=== PATIENT | female | born 1965 | race Caucasian/White ===

== ENCOUNTER 2019-03-03 20:08 | Inpatient (IN) | payer MEDICARE ==
[~2019-03-03] VITALS: Ht 165.1 cm; Wt 95.3 kg
[2019-03-03 23:47] LABS: HEMATOCRIT 20.8 % (36.0-48.0); LYMPHOCYTES 15.1 % (15-50); MCH 29.8 pg (26.0-34.0); MCHC 33.7 g/dL (31.0-37.0); MCV 88.5 fL (80.0-100.0); MEAN PLATELET VOLUME 10.6 fL (7.4-10.4); NEUTROPHILS 74.6 % (40-80); PLATELET COUNT 63 10x3/uL (130-400); RBC 2.35 10x6/uL (4.00-5.40); RDW 15.1 % (11.5-14.5); WBC 7.2 10x3/uL (4.8-10.8)
[2019-03-04] VITALS (18 sets, daily range): BP systolic 85–121; BP diastolic 47–81; Ht 165.1 cm; Wt 95.3 kg
[2019-03-04 00:03] LABS: ALBUMIN 2.8 g/dL (3.4-5.0); ANION GAP 11.8 mmol/L (8-16); BILIRUBIN - TOTAL 0.7 mg/dL (0.2-1.3); CARBON DIOXIDE 32.1 mmol/L (21.0-32.0); CREATININE - SERUM 1.9 mg/dL (0.6-1.3); POTASSIUM - SERUM 3.9 mmol/L (3.5-5.1); PROTEIN - SERUM 6.7 g/dL (6.4-8.2)
[2019-03-04 00:18] LABS: CALCIUM 12.6 mg/dL (8.5-10.1)
[2019-03-04] MEDS ORDERED: BUPROPION XL300 MG PO (00:55)
[2019-03-04] MEDS ORDERED: ACETAMINOPHEN500 M1 PO (00:59)
--- NOTE | 2019-03-04 06:42 | NUR ---
ALERT AND ORENTED ABLE TO VOICE NEEDS AND WANTS TO STAFF. IV TO RIGHT HAND WITH NS AT 75 UNTILL PRBC UNIT #1 OF 2 STARTED AT 0359. TOLARATING WELL. LEFT ARM RESERVE. SCD'S IN PLACE. CALL LIGHT AND WATER IN REACH.
--- NOTE | 2019-03-04 07:05 | NUR ---
PT RESTING IN BED WITH EYES CLOSED. RESP EVEN AND UNLABORED. REPORTS PAIN 4/10 AT THIS TIME. IV TO RIGHT HAND WITH NS @ 75 ML/HR INFUSING VIA PUMP. SITE WITHOUT REDNESS OR EDEMA. DENIES FURTHER NEEDS AT THIS TIME. CL WITHIN REACH. ENCOURAGED TO CALL WITH NEEDS. CONTINUE POC
[2019-03-04 09:13] LABS: % SATURATION 10 % (15-55); IRON 28 ug/dl (35-150); TOTAL IRON BIND CAPACITY 258 ug/dl (260-445); UNSAT IRON BIND CAPACITY 230 ug/dl (150-375)
[2019-03-04 16:37] LABS: BASOPHILS 0.1 % (0-2); EOSINOPHILS 1.2 % (0-7); HEMOGLOBIN 8.3 g/dL (12-16); IMMATURE GRANULOCYTES 1.9 % (0-5); LYMPHOCYTES 18.7 % (15-50); MCH 28.6 pg (26.0-34.0); MCHC 33.2 g/dL (31.0-37.0); MEAN PLATELET VOLUME 10.2 fL (7.4-10.4); NEUTROPHILS 68.1 % (40-80); PLATELET COUNT 52 10x3/uL (130-400); RDW 15.8 % (11.5-14.5); WBC 6.9 10x3/uL (4.8-10.8)
[2019-03-04 16:52] LABS: MCV 86.2 fL (80.0-100.0)
[2019-03-04 16:53] LABS: INR 1.15 (0.85-1.17); PROTIME 14.2 SECONDS (11.6-15.0)
[2019-03-04 17:01] LABS: D-DIMER-QUANTITATIVE 3.53 ug/mLFEU (0.20-0.54)
[2019-03-04 17:06] LABS: ANION GAP 12.1 mmol/L (8-16); CALCIUM 11.2 mg/dL (8.5-10.1); CARBON DIOXIDE 30.5 mmol/L (21.0-32.0); CREATININE - SERUM 1.8 mg/dL (0.6-1.3); MAGNESIUM - SERUM 1.5 mg/dL (1.8-2.4); PHOSPHOROUS 4.2 mg/dL (2.5-4.9); POTASSIUM - SERUM 3.6 mmol/L (3.5-5.1)
[2019-03-04 17:11] LABS: PLATELET ESTIMATE DECREASED
[2019-03-04 22:44] LABS: HEMATOCRIT 25.9 % (36.0-48.0); HEMOGLOBIN 8.7 g/dL (12-16)
[2019-03-04 23:14] LABS: APPEARANCE CLEAR (CLEAR); BILIRUBIN NEGATIVE (NEGATIVE); COLOR YELLOW (YELLOW); GLUCOSE NEGATIVE (NEGATIVE); KETONE NEGATIVE (NEGATIVE); NITRITE NEGATIVE (NEGATIVE); PROTEIN NEGATIVE (NEGATIVE); UROBILINOGEN NORMAL (NORMAL)
[2019-03-05] VITALS: BP 106/60
[2019-03-05 06:23] LABS: BASOPHILS 0.1 % (0-2); EOSINOPHILS 1.6 % (0-7); HEMOGLOBIN 8.5 g/dL (12-16); LYMPHOCYTES 19.5 % (15-50); MCHC 32.7 g/dL (31.0-37.0); MCV 85.5 fL (80.0-100.0); MEAN PLATELET VOLUME 11.4 fL (7.4-10.4); MONOCYTES 7.3 % (2-11); NEUTROPHILS 69.5 % (40-80); PLATELET COUNT 60 10x3/uL (130-400); RBC 3.04 10x6/uL (4.00-5.40); WBC 7.1 10x3/uL (4.8-10.8)
[2019-03-05 06:42] LABS: ANION GAP 16.4 mmol/L (8-16); CALCIUM 11.5 mg/dL (8.5-10.1); CARBON DIOXIDE 24.3 mmol/L (21.0-32.0); CREATININE - SERUM 1.6 mg/dL (0.6-1.3); MAGNESIUM - SERUM 1.5 mg/dL (1.8-2.4); PHOSPHOROUS 4.2 mg/dL (2.5-4.9); POTASSIUM - SERUM 3.7 mmol/L (3.5-5.1)
[2019-03-05 07:12] LABS: UDS - AMPHET POSITIVE QUAL (NEGATIVE); UDS - BARB NEGATIVE QUAL (NEGATIVE); UDS - BENZO NEGATIVE QUAL (NEGATIVE); UDS - COCAINE NEGATIVE QUAL (NEGATIVE); UDS - OPIATE POSITIVE QUAL (NEGATIVE); UDS - PCP NEGATIVE QUAL (NEGATIVE); UDS - THC NEGATIVE QUAL (NEGATIVE)
--- NOTE | 2019-03-05 07:41 | NUR ---
PT IS RESTING IN BED WITH EYES CLOSED. RESPIRATIONS ARE EVEN AND UNLABORED. PT IS EASILY AROUSED WITH VERBAL STIMULATION. PT REPORTS PAIN WITH MOVEMENT TO BACK AREA. PT DENIES PRESENCE OF N/V. SCDS ARE ON BILATERAL LOWER EXTREMITIES. PUREWICK IN PLACE AND HOOKED TO SUCTION. PURE WICK CHANGED PER PROTOCOL. CLEAR DARK YELLOW URINE NOTED TO COLLECTION CHAMBER. PT DENIES PRESENCE OF BURNING WITH URINATION BUT REPORTS THAT SHE IS UNABLE TO CONTROL BLADDER ESPECIALLY WITH MOVEMENT. PT REPORTS LAST BM WAS 9 DAYS AGO AND REPORTS THAT HER NORMAL BOWEL PATTERN IS EVERY OTHER DAY. WILL ADDRESS. SEE EMAR. PT DENIES FURTHER NEEDS. BED IS IN THE LOWEST POSITION. CALL LIGHT AND BEDSIDE TABLE ARE WITHIN REACH. SIDE RAILS X 2. WILL CONT TO MONITOR.
[2019-03-05 08:30] VITALS: BP 117/66
[2019-03-05 09:47] LABS: PLATELET ESTIMATE DECREASED
[2019-03-05 09:54] LABS: ANISOCYTOSIS OCC; PLATELET MORPHOLOGY PLT CLUMPS PRESENT
[2019-03-05 09:55] LABS: CRENATED CELLS OCC; SCHISTOCYTES OCC; TEAR DROP CELLS OCC
--- NOTE | 2019-03-05 15:14 | MORECARE ---
CASE MANAGEMENT DISCHARGE SUMMARY PATIENT: DOMINGA GARCIA UNIT: [id number] ADM DATE: 03/03/19 AGE: 53 : 61 SEX: F ROOM/BED: D.2206 AUTHOR: KALINA PEOPLES PHYSICIAN: REFERRING PHYSICIAN: SPOHY TEJEDA DO DATE OF SERVICE: 03/05/19 Discharge Plan Patient Name: DOMINGA GARCIA [facility] [facility] 1965 Planned Disposition: Home Anticipated Discharge Date: Discharge Date: Expected LOS: Initial Reviewer: [email or web address] Initial Review Date: 03/04/2019 Generated: 03/05/19 4:13 pm DCPIA - Discharge Planning Initial Assessment Updated by [email or web address]: Dianne Stewart on 03/05/19 3:05 pm * Is the patient Alert and Oriented? Yes * PCP [facility] * Pharmacy [facility]? * Preadmission Environment Home with Family * ADLs Independent * Equipment None * List name and contact numbers for known caregivers / representatives who currently or will assist patient after discharge: HALI GARCIA [phone] * Verbal permission to speak to the caregivers and representatives has been obtained from the patient. N/A * Community resources currently utilized None * Additional services required to return to the preadmission environment? Yes * Has this patient been hospitalized within the prior 30 days at any hospital? No Patient Name: DOMINGA GARCIA Page [id number] at 1514 All edits/amendments must be made on the electronic document DICTATION DATE: 03/05/191512 MARKETING OPERATIONS MANAGER: JOSE 03/05/191512 RPT#: [id number] DC DATE: STATUS: ADM IN [facility] [address] [place] [address] END OF REPORT
--- NOTE | 2019-03-05 15:23 | MORECARE ---
CASE MANAGEMENT DISCHARGE SUMMARY PATIENT: DOMINGA GARCIA UNIT: [id number] ADM DATE: 03/03/19 AGE: 53 : 61 SEX: F ROOM/BED: D.2206 AUTHOR: KALINA PEOPLES PHYSICIAN: REFERRING PHYSICIAN: SOPHY TEJEDA DO DATE OF SERVICE: 03/05/19 Discharge Plan Patient Name: DOMINGA GARCIA Facility: [facility]:[place] : 1965 Planned Disposition: Home Anticipated Discharge Date: Discharge Date: Expected LOS: Initial Reviewer: [email or web address] Initial Review Date: 03/04/2019 Generated: 03/05/19 4:22 pm Comments DCP- Discharge Planning Updated by [id number]: Dianne Stewart on 03/05/19 2:[address] Patient Name: DOMINGA GARCIA Admission Status: ER Accout number: [id number] Admission Date: 03-03-2019 : 1965 Admission Diagnosis: Attending: SOPHY TEJEDA Current LOS: 2 Anticipated DC Date: Planned Disposition: Home Primary Insurance: MEDICARE A & B Discharge Planning Comments: CM met with patient to complete initial dc planning assessment. CM educated patient on the CM role and verbal consent given by patient to complete assessment. Patient is living with her friend Lynnette with her and her 13 year old Autistic son Yohan. She stated that Lynnette has 9 other people who are living there. She stated that they are homeless. At discharge she is unsure where she is going to go. She could not tell me what school her son went to, then she said she thought [employer]. She was on the phone with her when I entered her room and he was getting pulled over, she stated that he has active warrants out for him and her son was in the car. Her son did not go to school today. CM discussed availability of home health, rehab services, and medical equipment. CM will continue to follow and will assist as needed with dc plans/needs. Java Oracle Developer: Dianne Stewart DCPIA - Discharge Planning Initial Assessment Updated by [email or web address]: Dianne Stewart on 03/05/19 3:05 pm * Is the patient Alert and Oriented? Yes * PCP [facility] * Pharmacy [facility]? * Preadmission Environment Home with Family * ADLs Independent * Equipment None * List name and contact numbers for known caregivers / representatives who currently or will assist patient after discharge: HALI GARCIA [phone] * Verbal permission to speak to the caregivers and representatives has been obtained from the patient. N/A * Community resources currently utilized None * Additional services required to return to the preadmission environment? Yes * Has this patient been hospitalized within the prior 30 days at any hospital? No Last DP export: 03/05/19 2:14 p Patient Name: DOMINGA GARCIA Page 32600 at 1523 All edits/amendments must be made on the electronic document DICTATION DATE: 03/05/191521 SOCIOLOGY PROFESSOR: JOSE 03/05/191521 RPT#: [id number] DC DATE: STATUS: ADM IN [facility] [address] [place] [address] END OF REPORT
[2019-03-05 16:00] VITALS: BP 94/54
--- NOTE | 2019-03-05 19:30 | NUR ---
PT LYING IN BED RESTING, ALERT AND ORIENTED. FAMILY AT BEDSIDE. IV RIGHT WRIST INFUSING NS @ 75, NO REDNESS OR SWELLING AT INSERTION SITE. SCDS ON BILAT. RESERVE LEFT ARM. REQUESTED AND GIVEN ICE CHIPS. DENIES OTHER NEEDS AT THIS TIME. CL IN REACH, WILL CTM
[2019-03-05 20:00] VITALS: BP 108/66
[2019-03-06 04:00] VITALS: BP 159/69
--- NOTE | 2019-03-06 07:19 | NUR ---
PT IS RESTING IN BED WITH EYES CLOSED. RESPIRATIONS ARE EVEN AND UNLABORE. PT IS EASILY AROUSED WITH VERBAL STIMULATION. PT REPORTS PRESENCE OF PAIN. DENIES NEEDS AT THIS TIME. PUREWICK CHANGED. PUREWICK SET TO SUCTION. DARK YELLOW URINE NOTED TO COLLECTION CANNISTER. SCDS ARE ON. PT DENIES PRESENCE OF N/V. BED IS IN THE LOWEST POSITION. CALL LIGHT AND BEDSIDE TABLE ARE WITHIN REACH. SIDE RAILS X 2. PT DENIES FURTHER NEEDS. WILL CONT TO MONITOR.
[2019-03-06 07:31] LABS: BASOPHILS 0.4 % (0-2); EOSINOPHILS 3.1 % (0-7); HEMATOCRIT 25.8 % (36.0-48.0); HEMOGLOBIN 8.4 g/dL (12-16); IMMATURE GRANULOCYTES 3.1 % (0-5); LYMPHOCYTES 11.8 % (15-50); MCH 28.2 pg (26.0-34.0); MCHC 32.6 g/dL (31.0-37.0); MCV 86.6 fL (80.0-100.0); MONOCYTES 5.7 % (2-11); NEUTROPHILS 75.9 % (40-80); PLATELET COUNT 52 10x3/uL (130-400); RBC 2.98 10x6/uL (4.00-5.40)
[2019-03-06 07:47] LABS: WBC 5.1 10x3/uL (4.8-10.8)
[2019-03-06 07:56] LABS: CALCIUM 11.3 mg/dL (8.5-10.1); CARBON DIOXIDE 25.2 mmol/L (21.0-32.0); CREATININE - SERUM 1.3 mg/dL (0.6-1.3); MAGNESIUM - SERUM 1.6 mg/dL (1.8-2.4); PHOSPHOROUS 3.4 mg/dL (2.5-4.9); POTASSIUM - SERUM 3.2 mmol/L (3.5-5.1)
[2019-03-06 08:25] LABS: PLATELET ESTIMATE DECREASED
[2019-03-06 08:38] VITALS: BP 144/63
[2019-03-06 11:58] VITALS: BP 116/63
--- NOTE | 2019-03-06 12:20 | MORECARE ---
CASE MANAGEMENT DISCHARGE SUMMARY PATIENT: DOMINGA GARCIA UNIT: [id number] ADM DATE: 03/03/19 AGE: 53 : 61 SEX: F ROOM/BED: D.2206 AUTHOR: RICHELLE,DOC PHYSICIAN: REFERRING PHYSICIAN: SOPHY TEJEDA DO DATE OF SERVICE: 03/06/19 Discharge Plan Patient Name: DOMINGA GARCIA Facility: [facility]:[place] : 1965 Planned Disposition: Home Anticipated Discharge Date: Discharge Date: Expected LOS: Initial Reviewer: [email or web address] Initial Review Date: 03/04/2019 Generated: 03/06/19 1:19 pm Comments DCP- Discharge Planning Updated by [email or web address]: Dianne Stewart on 03/06/19 11:[address] SPOKE WITH PATIENT ABOUT DC PLAN, SHE IS ABLE TO DC TO LYNNETTE'S HOUSE. HER DID NOT GET ARRESTED AND WILL BE ABLE TO HELP HER. SHE IS IN ALOT OF PAIN, BUT KNOWS THAT DR IBANEZ WILL DO THE PROCEDURE NEXT WEEK. IMM SERVED AND EXPLAINED DCP- Discharge Planning Updated by [id number]: Dianne Stewart on 03/05/19 2:[address] Patient Name: DOMINGA GARCIA Admission Status: ER Accout number: [id number] Admission Date: 03-03-2019 : 1965 Admission Diagnosis: Attending: SOPHY TEJEDA Current LOS: 2 Anticipated DC Date: Planned Disposition: Home Primary Insurance: MEDICARE A & B Discharge Planning Comments: CM met with patient to complete initial dc planning assessment. CM educated patient on the CM role and verbal consent given by patient to complete assessment. Patient is living with her friend Lynnette with her and her 13 year old Autistic son Yohan. She stated that Lynnette has 9 other people who are living there. She stated that they are homeless. At discharge she is unsure where she is going to go. She could not tell me what school her son went to, then she said she thought [employer]. She was on the phone with her when I entered her room and he was getting pulled over, she stated that he has active warrants out for him and her son was in the car. Her son did not go to school today. CM discussed availability of home health, rehab services, and medical equipment. CM will continue to follow and will assist as needed with dc plans/needs. Barrel Planer: Dianne Stewart DCPIA - Discharge Planning Initial Assessment Updated by [id number]: Dianne Stewart on 03/05/19 3:05 pm * Is the patient Alert and Oriented? Yes * PCP [facility] * Pharmacy [facility]? * Preadmission Environment Home with Family * ADLs Independent * Equipment None * List name and contact numbers for known caregivers / representatives who currently or will assist patient after discharge: HALI GARCIA [phone] * Verbal permission to speak to the caregivers and representatives has been obtained from the patient. N/A * Community resources currently utilized None * Additional services required to return to the preadmission environment? Yes * Has this patient been hospitalized within the prior 30 days at any hospital? No Coverage Notice Reviewer: [id number] - Dianne Stewart Notice Issued Date-Time: 03/06/2019 12:10 Notice Type: IM Discharge Notice Notice Delivered To: Patient Relationship to Patient: Seeing Eye Dog Teacher Name: Delivery Method: HAND - Hand Delivered Eduarda Days: Prior Verbal Notification: Recipient Understood Notice: Yes Recipient Signature: Yes Med Rec Note Co-signed by Attending: Coverage Notice Comment: Last DP export: 03/05/19 2:23 p Patient Name: DOMINGA GARCIA Page 76207 at 1220 All edits/amendments must be made on the electronic document DICTATION DATE: 03/06/19 121 SAP CONSULTANT: JOSE 03/06/19 1219 RPT#: [id number] DC DATE: STATUS: ADM IN [facility] [address] [place] [address] END OF REPORT
--- NOTE | 2019-03-06 12:24 | NUR ---
NUTRITION F/U PT CURRENTLY SLEEPING, NO INTAKE BREAKFAST THIS AM. WILL ADD ENSURE TO MEALS. RD FOLLOWING
[2019-03-06 16:34] VITALS: BP 131/59
--- NOTE | 2019-03-06 19:15 | NUR ---
A/O X4 WITH NO SIGNS OF ACUTE DISTRESS NOTED. PT DENIES PAIN OR OTHER NEEDS AT THIS TIME. CONTIUE WITH PLAN OF CARE.
[2019-03-06 20:00] VITALS: BP 127/63
[2019-03-07] VITALS: BP 119/62
[2019-03-07 04:00] VITALS: BP 134/69
[2019-03-07 06:37] LABS: BASOPHILS 0.2 % (0-2); EOSINOPHILS 0.7 % (0-7); HEMATOCRIT 25.5 % (36.0-48.0); HEMOGLOBIN 8.3 g/dL (12-16); IMMATURE GRANULOCYTES 2.7 % (0-5); LYMPHOCYTES 17.2 % (15-50); MCH 27.9 pg (26.0-34.0); MCHC 32.5 g/dL (31.0-37.0); MCV 85.9 fL (80.0-100.0); MEAN PLATELET VOLUME 11.1 fL (7.4-10.4); MONOCYTES 8.9 % (2-11); NEUTROPHILS 70.3 % (40-80); PLATELET COUNT 56 10x3/uL (130-400); RBC 2.97 10x6/uL (4.00-5.40); RDW 15.6 % (11.5-14.5); WBC 5.5 10x3/uL (4.8-10.8)
[2019-03-07 06:48] LABS: ANION GAP 11.7 mmol/L (8-16); CALCIUM 9.8 mg/dL (8.5-10.1); CARBON DIOXIDE 27.5 mmol/L (21.0-32.0); CREATININE - SERUM 1.2 mg/dL (0.6-1.3); MAGNESIUM - SERUM 1.7 mg/dL (1.8-2.4); POTASSIUM - SERUM 3.2 mmol/L (3.5-5.1)
[2019-03-07 06:49] LABS: PHOSPHOROUS 2.5 mg/dL (2.5-4.9)
[2019-03-07 08:44] VITALS: BP 95/55
--- NOTE | 2019-03-07 09:01 | NUR ---
MEDICATED NORCO FOR C/O BACK PAIN RATING 5/10 ON PAIN SCALE. C/L IN REACH AT BEDSIDE.
[2019-03-07 09:53] LABS: PLATELET ESTIMATE DECREASED
[2019-03-07 13:32] VITALS: BP 90/52
--- NOTE | 2019-03-07 14:07 | NUR ---
MEDICATED WITH NORCO FOR C/O BACK PAIN AT THIS TIME. C/L IN REACH AT BEDSIDE.
[2019-03-07 17:25] VITALS: BP 90/50
[2019-03-07 20:00] VITALS: BP 127/55
--- NOTE | 2019-03-07 22:00 | NUR ---
REPORTS DIFICULTY BREATHING. SPO2 97% ON ROOM AIR. SAT BED UP SLIGHTLY AND INFORMED TO TAKE SLOW DEEP BREATHS THE BEST SHE CAN. PT REPORTS OCCASIONAL PANIC ATTACKS, BUT STATES ANXIETY MEDICATION MAKE HER LOSE TIME AND/OR MAKES HER ANGRY. PT IS UPSET ABOUT AUTISTIC CHILD AND AT HOME. PT IS AFRAID TO AND THEM HAVE TO TAKE CARE OF THEMSELVES. BREATHING HAS CALMED DOWN. DENIES FURTHER NEEDS AT THIS TIME. WILL CONTINUE TO MONITOR.
[2019-03-08] VITALS: BP 141/75
[2019-03-08 04:50] VITALS: BP 134/68
[2019-03-08 05:17] LABS: BASOPHILS 0.2 % (0-2); EOSINOPHILS 1.1 % (0-7); HEMATOCRIT 25.4 % (36.0-48.0); HEMOGLOBIN 8.3 g/dL (12-16); IMMATURE GRANULOCYTES 4.5 % (0-5); LYMPHOCYTES 18.2 % (15-50); MCH 28.3 pg (26.0-34.0); MCHC 32.7 g/dL (31.0-37.0); MCV 86.7 fL (80.0-100.0); MEAN PLATELET VOLUME 11.6 fL (7.4-10.4); MONOCYTES 5.3 % (2-11); NEUTROPHILS 70.7 % (40-80); PLATELET COUNT 52 10x3/uL (130-400); RBC 2.93 10x6/uL (4.00-5.40); RDW 15.5 % (11.5-14.5); WBC 6.4 10x3/uL (4.8-10.8)
[2019-03-08 05:52] LABS: ANION GAP 16.3 mmol/L (8-16); CALCIUM 8.4 mg/dL (8.5-10.1); CARBON DIOXIDE 22.6 mmol/L (21.0-32.0); CREATININE - SERUM 1.3 mg/dL (0.6-1.3); MAGNESIUM - SERUM 1.7 mg/dL (1.8-2.4); PHOSPHOROUS 2.5 mg/dL (2.5-4.9); POTASSIUM - SERUM 3.9 mmol/L (3.5-5.1)
--- NOTE | 2019-03-08 08:00 | NUR ---
ASSESSMENT PER FLOW SHEET. PT IS WITHOUT DISTRESS. SHE DOES COMPLAIN OF CONSTIPATION AND ABDOMINAL PAIN ON LEFT SIDE. SHE ALSO COMPLAINS OF BACK PAIN. SHE REFUSES TO TURN BECAUSE SHE SAYS IT HURTS WHEN SHE MOVES. UNABLE TO SEE SKIN CONDITION ON BACK AND BUTTOCKS.FALL PREVENTION IN PLACE
[2019-03-08 08:59] VITALS: BP 119/75
--- NOTE | 2019-03-08 15:15 | NUR ---
AGREES TO TURN ON RIGHT SIDE A LITTLE.PAIN MEDS ORDERED
[2019-03-08 16:49] VITALS: BP 131/60
--- NOTE | 2019-03-08 18:36 | NUR ---
FAMILY AT BEDSIDE. PT IS FEELING A LITTLE BETTER. STILL NO BM.MOM ORDERED PER MAR.CONT PLAN OF CARE
--- NOTE | 2019-03-08 19:40 | NUR ---
LYING IN BED ON RT SIDE. ANXIOUS, ARGUING WITH FAMILY. C/O PAIN IN ABD 8. OFFERED NORCO BUT REFUSED. MEDICATED WITH BACLOFEN. PUREWICK CATH IN PLACE WITH YELLOW URINE IN CANISTER. TELEMTRY SHOWS SB WITH RATE OF 58. SCDS IN USE BILAT. NS @ 75 ML/HR INFUSING IN RT FOREARM BUT IS LEAKING. IV CATH REMOVED FROM RT FOREARM. IV RESTARTED IN RT FOREARM AFTER ATTEMPT X2 WITH 22G. RESERVE LT ARM. NO EDEMA NOTED. MOOD IS LABILE. AND SON AT BEDSIDE. C/O CONSTIPATION. ATTN SEEKING. SR ELEVATED X2. CL IN REACH.
[2019-03-08 19:50] VITALS: BP 121/62
--- NOTE | 2019-03-08 20:35 | NUR ---
NOW REQUESTING NORCO. MEDICATED ORDERED FOR C/O ABD/BACK PAIN. REQUESTING ICE CREAM AND JUICE FOR HERSELF AND HER FAMILY. CL IN REACH.
--- NOTE | 2019-03-08 22:54 | NUR ---
HAS HAD 3 BMS IN LAST FEW MINUTES IN BEDPAN. LARGE AMOUNT OF HARD STOOL BALLS NOTED THAT TURNED TO LIQUID. STATES SHE FEELS MUCH BETTER. SPECIMEN COLLECTED FOR OCCULT BLOOD.
--- NOTE | 2019-03-08 23:56 | NUR ---
LIQUID BM NOTED. REQUESTS MORE SNACKS AT THIS TIME. CL IN REACH.
[2019-03-09] VITALS: BP 135/65
--- NOTE | 2019-03-09 00:31 | NUR ---
MEDICATED WITH NORCO FOR C/O BACK PAIN. CL IN REACH.
[2019-03-09 04:00] VITALS: BP 144/70
--- NOTE | 2019-03-09 04:31 | NUR ---
MEDICATED WITH NORCO FOR C/O PAIN IN BACK. TALKATIVE. CL IN REACH.
--- NOTE | 2019-03-09 06:40 | NUR ---
C/O PAIN. NOT TIME YET. OFFERED BACLOFEN AND SHE ACCEPTED. PT MEDICATED WITH BACLOFEN. PT LAUGHING, TALKING TO SON AND WATCHING TV. NO DISTRESS.
[2019-03-09 07:14] VITALS: BP 132/54
--- NOTE | 2019-03-09 08:00 | NUR ---
ASSESSMENT PER FLOW SHEET. PT IS ANXIOUS THIS AM. SHE COMPLAINS OF BACK PAIN AND SHOULDER PAIN. ALSO COMPLAINS OF NAUSEA.MEDS ORDERED PER SEP.FALL PREVENTION IN PLACE. FAMILY AT BEDSIDE
[2019-03-09 09:03] LABS: HEMATOCRIT 28.1 % (36.0-48.0); MCH 28.2 pg (26.0-34.0); MCV 88.1 fL (80.0-100.0); MEAN PLATELET VOLUME 12.4 fL (7.4-10.4); PLATELET COUNT 56 10x3/uL (130-400); RBC 3.19 10x6/uL (4.00-5.40); RDW 15.7 % (11.5-14.5); WBC 7.5 10x3/uL (4.8-10.8)
[2019-03-09 09:10] LABS: ANION GAP 12.2 mmol/L (8-16); CALCIUM 7.8 mg/dL (8.5-10.1); CARBON DIOXIDE 26.4 mmol/L (21.0-32.0); CREATININE - SERUM 0.9 mg/dL (0.6-1.3); MAGNESIUM - SERUM 2.1 mg/dL (1.8-2.4); POTASSIUM - SERUM 3.6 mmol/L (3.5-5.1)
[2019-03-09 09:33] LABS: LYMPHOCYTES 25 % (15-50); MONOCYTES 4 % (2-11); NEUTROPHILS 62 % (40-80); PLATELET ESTIMATE DECREASED
[2019-03-09 12:43] VITALS: BP 108/62
[2019-03-09 18:26] VITALS: BP 109/49
--- NOTE | 2019-03-09 19:47 | NUR ---
PATIENT ALERT AND ORENTED ABLE TO VOICE NEEDS AND WANTS TO STAFF. RESERVE LEFT ARM, IV IN PLACE AND PATEN TO RIGHT FR WITH NS AT 75. TELEMET[address] IN PLACE. SCD'S IN PLACE. FAMILY AT BEDSIDE.
[2019-03-09 20:00] VITALS: BP 140/67
[2019-03-10] VITALS: BP 146/69
[2019-03-10 04:00] VITALS: BP 142/71
[2019-03-10 06:14] LABS: BASOPHILS 0.2 % (0-2); EOSINOPHILS 0.5 % (0-7); HEMATOCRIT 25.4 % (36.0-48.0); HEMOGLOBIN 8.2 g/dL (12-16); IMMATURE GRANULOCYTES 5.9 % (0-5); LYMPHOCYTES 19.5 % (15-50); MCH 28.1 pg (26.0-34.0); MCHC 32.3 g/dL (31.0-37.0); MEAN PLATELET VOLUME 10.9 fL (7.4-10.4); MONOCYTES 8.6 % (2-11); NEUTROPHILS 65.3 % (40-80); RBC 2.92 10x6/uL (4.00-5.40); RDW 15.8 % (11.5-14.5); WBC 6.1 10x3/uL (4.8-10.8)
[2019-03-10 06:17] LABS: PLATELET COUNT 47 10x3/uL (130-400)
--- NOTE | 2019-03-10 06:30 | NUR ---
LAB CALLED WITH PLATELET COUNT OF 46 CRITICAL LOW CALL TO [facility] FOR BOTANICAL TECHNICAL OFFICER AWATTING CALL BACK
--- NOTE | 2019-03-10 06:43 | NUR ---
KATHRYN DALEY RETRUNED CALL ASK IF DR ATKINS WAS CONSULTING INFORED YES STATED TO CALL DR ATKINS. DR. ATKINS CALLED /PAGED RETRUNED INFORMED WITH NO NEW ORDERS.
[2019-03-10 06:46] LABS: ANION GAP 11.8 mmol/L (8-16); CALCIUM 7.6 mg/dL (8.5-10.1); CARBON DIOXIDE 25.7 mmol/L (21.0-32.0); CREATININE - SERUM 0.9 mg/dL (0.6-1.3); MAGNESIUM - SERUM 2.1 mg/dL (1.8-2.4)
[2019-03-10 06:48] LABS: POTASSIUM - SERUM 4.5 mmol/L (3.5-5.1)
--- NOTE | 2019-03-10 07:41 | NUR ---
AWAKE AND ALERT. ORIENTED X3. C/O PAIN TO RIGHT SHOULDER AND ARM. HAS GOOD ROM TO SAME NO SWELLING NOTED. LUNGS ARE CLEAR BILATERALLY, NO COUGH NOTED. SKIN IS INTACT WTIHOUT REDNESS.. SCD'S IN PLACE. IV TO RIGHT FOREARM IS PATETN WTIHOUT REDNESS AT INSERTION SITE. DENIES NEEDS. FAMILY AT BEDSIDE.
[2019-03-10 07:43] LABS: PLATELET ESTIMATE DECREASED
--- NOTE | 2019-03-10 07:44 | NUR ---
PUREWICK IN PLACE WITH CLEAR YELLOW URINE.
--- NOTE | 2019-03-10 08:28 | NUR ---
WOUND CARE CONSULT/DECREASED MOBILITY RECOMMENDATIONS: --TURN/REPOSITION Q 2 HOURS WHILE IN BED/HOURLY REPOSITIONING IF UP IN CHAIR --FLOAT HEELS --CALMOSEPTINE CREAM TO PERINEAL AREA IF REDNESS OCCURS DUE TO INCONTINENCE --ASSESS SKIN AND DOCUMENT FINDINGS Q SHIFT --IF NOT CONTRAINDICATED - PLACE ON AN AIR OVERLAY MATTRESS
[2019-03-10 08:46] VITALS: BP 134/71
--- NOTE | 2019-03-10 10:00 | NUR ---
HAD SOME INCONTINENCE WITH PUREWICK. SKIN CARE PER STAFF. LINENS CHANGED. PUREWICK REPOSITIONED.
--- NOTE | 2019-03-10 12:30 | NUR ---
LUNCH SERVED IN ROOM. ATE WELL. FAMILY AT BEDSIDE.
[2019-03-10 13:03] VITALS: BP 115/60
--- NOTE | 2019-03-10 13:17 | NUR ---
Nutrition follow-up: Diet: Regular with Ensure TID PO Intake now ~65% average of last 3 meals PO intake improving Labs reviewed Wt: 209# +BM after laxative RDN following.
--- NOTE | 2019-03-10 15:40 | MORECARE ---
CASE MANAGEMENT DISCHARGE SUMMARY PATIENT: DOMINGA GARCIA UNIT: [id number] ADM DATE: 03/03/19 AGE: 53 : 61 SEX: F ROOM/BED: D.2206 AUTHOR: KALINA PEOPLES PHYSICIAN: REFERRING PHYSICIAN: SOPHY TEJEDA DO DATE OF SERVICE: 03/10/19 Discharge Plan Patient Name: DOMINGA GARCIA Facility: [facility]:[place] : 1965 Planned Disposition: Home Anticipated Discharge Date: Discharge Date: Expected LOS: Initial Reviewer: [email or web address] Initial Review Date: 03/04/2019 Generated: 03/10/19 4:39 pm Comments DCP- Discharge Planning Updated by [id number]: Dianne Stewart on 03/10/19 2:[address] Spoke at length with patient and spouse about dc planning. Patient stated that she can not go back to [place] due to the roaches and if not being clean or safe. She talked about her son being kicked out of [employer], for him to be home schooled. Spouse does not have enough gas money to get back home "Lynnette's" They do not get their check till the1st of the month then they plan to go to a motel to be close to the hospital and treatment center. Patient plans to start chemo after Dr ibanez does her kyphoplasty. I have sent a letter to Mrs Schulz the ;s PO as requested. They have both given me permission to call [employer] to see if the son could return/ have any services. CM to follow and assist with dc planning DCP- Discharge Planning Updated by [email or web address]: Dianne Stewart on 03/06/19 11:[address] SPOKE WITH PATIENT ABOUT DC PLAN, SHE IS ABLE TO DC TO [facility]. HER DID NOT GET ARRESTED AND WILL BE ABLE TO HELP HER. SHE IS IN ALOT OF PAIN, BUT KNOWS THAT DR IBANEZ WILL DO THE PROCEDURE NEXT WEEK. IMM SERVED AND EXPLAINED DCP- Discharge Planning Updated by [id number]: Dianne Stewart on 03/05/19 2:[address] Patient Name: DOMINGA GARCIA Admission Status: ER Accout number: [id number] Admission Date: 03-03-2019 : 1965 Admission Diagnosis: Attending: SOPHY TEJEDA Current LOS: 2 Anticipated DC Date: Planned Disposition: Home Primary Insurance: MEDICARE A & B Discharge Planning Comments: CM met with patient to complete initial dc planning assessment. CM educated patient on the CM role and verbal consent given by patient to complete assessment. Patient is living with her friend Lynnette with her and her 13 year old Autistic son Yohan. She stated that Lynnette has 9 other people who are living there. She stated that they are homeless. At discharge she is unsure where she is going to go. She could not tell me what school her son went to, then she said she thought [employer]. She was on the phone with her when I entered her room and he was getting pulled over, she stated that he has active warrants out for him and her son was in the car. Her son did not go to school today. CM discussed availability of home health, rehab services, and medical equipment. CM will continue to follow and will assist as needed with dc plans/needs. Photocopy Operator: Dianne Stewart DCPIA - Discharge Planning Initial Assessment Updated by [email or web address]: Dianne Stewart on 03/05/19 3:05 pm * Is the patient Alert and Oriented? Yes * PCP [facility] * Pharmacy [facility]? * Preadmission Environment Home with Family * ADLs Independent * Equipment None * List name and contact numbers for known caregivers / representatives who currently or will assist patient after discharge: HALI GARCIA [phone] * Verbal permission to speak to the caregivers and representatives has been obtained from the patient. N/A * Community resources currently utilized None * Additional services required to return to the preadmission environment? Yes * Has this patient been hospitalized within the prior 30 days at any hospital? No Coverage Notice Reviewer: [email or web address] - Dianne Stewart Notice Issued Date-Time: 03/06/2019 12:10 Notice Type: IM Discharge Notice Notice Delivered To: Patient Relationship to Patient: Coal Deliverer Name: Delivery Method: HAND - Hand Delivered Eduarda Days: Prior Verbal Notification: Recipient Understood Notice: Yes Recipient Signature: Yes Med Rec Note Co-signed by Attending: Coverage Notice Comment: Last DP export: 03/06/19 11:20 a Patient Name: DOMINGA GARCIA Page 68625 at 1540 All edits/amendments must be made on the electronic document DICTATION DATE: 03/10/191538 ENVIRONMENTAL HEALTH NURSE: JOSE 03/10/191538 RPT#: [id number] DC DATE: STATUS: ADM IN [facility] [address] [place] [address] END OF REPORT
--- NOTE | 2019-03-10 16:30 | NUR ---
REQUESTED AND GIVEN ONE HYDROCODONE PO FOR C/O NECK BACK SHOULDER PAIN LEVEL 9. WILL MONITOR.
[2019-03-10 17:41] VITALS: BP 114/62
--- NOTE | 2019-03-10 19:38 | NUR ---
ATE MOST OF SUPPER. DENIES NEEDS. NO CHANGES NOTED.
[2019-03-10 21:17] VITALS: BP 108/60
--- NOTE | 2019-03-10 22:45 | NUR ---
rec'd. chge of shift walking rounds in bed.states back pain has been a ten all day nobody has brought me anything unless i ask.informed pain med is ordered as needed. not brought to you automatic like scheduled meds. you have to ask for it.voices understanding.will continue to monitor for any chges.and follow current plan of care.
[2019-03-11 00:17] VITALS: BP 112/64
[2019-03-11 04:42] VITALS: BP 134/69
--- NOTE | 2019-03-11 06:19 | NUR ---
I have reviewed this patient and I concur with the Shift Assessment completed by the Licensed Practical Nurse today this shift.
[2019-03-11 07:05] LABS: ANION GAP 13.1 mmol/L (8-16); CARBON DIOXIDE 26.1 mmol/L (21.0-32.0); CREATININE - SERUM 0.9 mg/dL (0.6-1.3); MAGNESIUM - SERUM 1.7 mg/dL (1.8-2.4); POTASSIUM - SERUM 4.2 mmol/L (3.5-5.1)
[2019-03-11 07:14] LABS: CALCIUM 6.9 mg/dL (8.5-10.1)
--- NOTE | 2019-03-11 07:15 | NUR ---
PT IS RESTING IN BED WITH EYES CLOSED. RESPRIATIONS ARE EVEN AND UNLABORED. PT IS EASILY AROUSED WITH VERBAL STIMULATION. PT IS ORIENTED X 4 UPON AROUSAL. PT SPOUSE IS SLEEPING IN BEDSIDE CHAIR AND PT SON IS SLEEPING IN THE FLOOR ON BLANKETS WITH A PILLOW. PT DENIES PRESENCE OF PAIN/N/V AT THIS TIME. IV INFUSING WITHOUT DIFFICULTY. SCDS ARE ON AND WORKING. FENTANYL PATCH NOTED TO RIGHT BACK SHOULDER. PUREWICK INPLACE AND YELLOW CLEAR URINE NOTED TO COLLECTION CHAMBER. BED IS IN THE LOWEST POSITION. CALL LIGHT AND BEDSIDE TABLE ARE WITHIN REACH. SIDE RAILS X 2. PT DENIES FURTHER NEEDS. WILL CONT TO MONITOR.
[2019-03-11 07:31] LABS: BASOPHILS 0.3 % (0-2); EOSINOPHILS 0.6 % (0-7); HEMATOCRIT 24.2 % (36.0-48.0); HEMOGLOBIN 7.8 g/dL (12-16); IMMATURE GRANULOCYTES 6.6 % (0-5); LYMPHOCYTES 26.3 % (15-50); MCH 28.5 pg (26.0-34.0); MCHC 32.2 g/dL (31.0-37.0); MCV 88.3 fL (80.0-100.0); MONOCYTES 9.8 % (2-11); NEUTROPHILS 56.4 % (40-80); PLATELET COUNT 51 10x3/uL (130-400); RBC 2.74 10x6/uL (4.00-5.40); RDW 16.2 % (11.5-14.5); WBC 6.3 10x3/uL (4.8-10.8)
[2019-03-11 08:06] VITALS: BP 108/58
--- NOTE | 2019-03-11 12:43 | MORECARE ---
CASE MANAGEMENT DISCHARGE SUMMARY PATIENT: DOMINGA GARCIA UNIT: [id number] ADM DATE: 03/03/19 AGE: 53 : 61 SEX: F ROOM/BED: D.2206 AUTHOR: KALINA PEOPLES PHYSICIAN: REFERRING PHYSICIAN: SOPHY TEJEDA DO DATE OF SERVICE: 03/11/19 Discharge Plan Patient Name: DOMINGA GARCIA Facility: [facility]:[place] : 1965 Planned Disposition: Home Anticipated Discharge Date: Discharge Date: Expected LOS: Initial Reviewer: [id number] Initial Review Date: 03/04/2019 Generated: 03/11/19 1:43 pm Comments DCP- Discharge Planning Updated by [email or web address]: Dianne Stewart on 03/10/19 2:[address] Spoke at length with patient and spouse about dc planning. Patient stated that she can not go back to [employer] due to the roaches and if not being clean or safe. She talked about her son being kicked out of [employer], for him to be home schooled. Spouse does not have enough gas money to get back home "[employer]" They do not get their check till the1st of the month then they plan to go to a motel to be close to the hospital and treatment center. Patient plans to start chemo after Dr ibanez does her kyphoplasty. I have sent a letter to Mrs Schulz the ;s PO as requested. They have both given me permission to call [employer] to see if the son could return/ have any services. CM to follow and assist with dc planning DCP- Discharge Planning Updated by [id number]: Dianne Stewart on 03/06/19 11:[address] SPOKE WITH PATIENT ABOUT DC PLAN, SHE IS ABLE TO DC TO [facility]. HER DID NOT GET ARRESTED AND WILL BE ABLE TO HELP HER. SHE IS IN ALOT OF PAIN, BUT KNOWS THAT DR IBANEZ WILL DO THE PROCEDURE NEXT WEEK. IMM SERVED AND EXPLAINED DCP- Discharge Planning Updated by [id number]: Dianne Stewart on 03/05/19 2:[address] Patient Name: DOMINGA GARCIA Admission Status: ER Accout number: [id number] Admission Date: 03-03-2019 : 1965 Admission Diagnosis: Attending: SOPHY TEJEDA Current LOS: 2 Anticipated DC Date: Planned Disposition: Home Primary Insurance: MEDICARE A & B Discharge Planning Comments: CM met with patient to complete initial dc planning assessment. CM educated patient on the CM role and verbal consent given by patient to complete assessment. Patient is living with her friend Lynnette with her and her 13 year old Autistic son Yohan. She stated that Lynnette has 9 other people who are living there. She stated that they are homeless. At discharge she is unsure where she is going to go. She could not tell me what school her son went to, then she said she thought [employer]. She was on the phone with her when I entered her room and he was getting pulled over, she stated that he has active warrants out for him and her son was in the car. Her son did not go to school today. CM discussed availability of home health, rehab services, and medical equipment. CM will continue to follow and will assist as needed with dc plans/needs. Digital Photo Printer: Dianne Stewart DCPIA - Discharge Planning Initial Assessment Updated by [id number]: Dianne Stewart on 03/05/19 3:05 pm * Is the patient Alert and Oriented? Yes * PCP [facility] * Pharmacy [facility]? * Preadmission Environment Home with Family * ADLs Independent * Equipment None * List name and contact numbers for known caregivers / representatives who currently or will assist patient after discharge: HALI GARCIA [phone] * Verbal permission to speak to the caregivers and representatives has been obtained from the patient. N/A * Community resources currently utilized None * Additional services required to return to the preadmission environment? Yes * Has this patient been hospitalized within the prior 30 days at any hospital? No External Providers External Provider: [facility] Next Contact Date: Service Request Date: Service Type: Resolution: Reviewer: Comments: Coverage Notice Reviewer: [id number] - Dianne Stewart Notice Issued Date-Time: 03/06/2019 12:10 Notice Type: IM Discharge Notice Notice Delivered To: Patient Relationship to Patient: Water Supervisor Name: Delivery Method: HAND - Hand Delivered Eduarda Days: Prior Verbal Notification: Recipient Understood Notice: Yes Recipient Signature: Yes Med Rec Note Co-signed by Attending: Coverage Notice Comment: Reviewer: [id number] - Dianne Stewart Notice Issued Date-Time: 03/11/2019 12:30 Notice Type: IM Discharge Notice Notice Delivered To: Patient Relationship to Patient: Water Supervisor Name: Delivery Method: HAND - Hand Delivered Eduarda Days: Prior Verbal Notification: Recipient Understood Notice: Yes Recipient Signature: Yes Med Rec Note Co-signed by Attending: Coverage Notice Comment: Last DP export: 03/10/19 2:40 p Patient Name: DOMINGA GARCIA Page [id number] at 1243 All edits/amendments must be made on the electronic document DICTATION DATE: 03/11/19 1243 COMMUNITY HEALTH ADVOCATE: JOSE 03/11/19 1243 RPT#: [id number] DC DATE: STATUS: ADM IN [facility] [address] [place] [address] END OF REPORT
--- NOTE | 2019-03-11 12:45 | NUR ---
UNIT (1) OF PRBC TRANSFUSION INITIATED. VSS. SEE TRANSFUSION CARD. TRANSFUSION INFUSING WITHOUT DIFFICULTY. WILL STAY IN ROOM TO MONITOR CLOSELY. PT WITHOUT APPARENT SIGNS OF DISTRESS AT THIS TIME.
--- NOTE | 2019-03-11 12:50 | MORECARE ---
CASE MANAGEMENT DISCHARGE SUMMARY PATIENT: DOMINGA GARCIA UNIT: [id number] ADM DATE: 03/03/19 AGE: 53 : 61 SEX: F ROOM/BED: D.2206 AUTHOR: RICHELLE,DOC PHYSICIAN: REFERRING PHYSICIAN: SOPHY TEJEDA DO DATE OF SERVICE: 03/11/19 Discharge Plan Patient Name: DOMINGA GARCIA Facility: [facility]:[place] : 1965 Planned Disposition: Home Anticipated Discharge Date: Discharge Date: Expected LOS: Initial Reviewer: [email or web address] Initial Review Date: 03/04/2019 Generated: 03/11/19 1:50 pm Comments DCP- Discharge Planning Updated by [id number]: Dianne Stewart on 03/11/19 11:[address] ANTICIAPTE THE PATIENT TO BE DISCHARGED AFTER THE UNIT OF BLOOD. PATIENT STATED THAT A FRIEND GAVE THEM 20 DOLLARS FOR GAS & THAT HER WAS GATHERING STUFF UP FOR THEM. I HAVE CALLED DR BOLDEN OFFICE TO CONFIRM HER APPOINTMENT FOR HER KYPHOPLASTY FOR TOMORROW I SPOKE WITH JOS, JOS WILL CALL ME BACK WITH A TIME. I ALSO ORDERED A WALKER FOR PATIENT FROM [facility] TO BE DELIVERED TO THE HOSPITAL I SPOKE WITH [facility]. PATIENT WILL NEED TO AMBULATE WITH [facility] ON PRIOR TO DISCHARGE IMM SERVED AND EXPLAINED. DCP- Discharge Planning Updated by [id number]: Dianne Stewart on 03/10/19 2:[address] Spoke at length with patient and spouse about dc planning. Patient stated that she can not go back to Iggy's house due to the roaches and if not being clean or safe. She talked about her son being kicked out of [employer], for him to be home schooled. Spouse does not have enough gas money to get back home "[employer]ggy's" They do not get their check till the1st of the month then they plan to go to a motel to be close to the hospital and treatment center. Patient plans to start chemo after Dr ibanez does her kyphoplasty. I have sent a letter to Mrs Schulz the ;s PO as requested. They have both given me permission to call [employer] to see if the son could return/ have any services. CM to follow and assist with dc planning DCP- Discharge Planning Updated by [email or web address]: Dianne Pat on 03/06/19 11:[address] SPOKE WITH PATIENT ABOUT DC PLAN, SHE IS ABLE TO DC TO [facility]S HOUSE. HER DID NOT GET ARRESTED AND WILL BE ABLE TO HELP HER. SHE IS IN ALOT OF PAIN, BUT KNOWS THAT DR IBANEZ WILL DO THE PROCEDURE NEXT WEEK. IMM SERVED AND EXPLAINED DCP- Discharge Planning Updated by [id number]: Dianne Pat on 03/05/19 2:[address] Patient Name: DOMINGA GARCIA Admission Status: ER Accout number: [id number] Admission Date: 03-03-2019 : 1965 Admission Diagnosis: Attending: SOPHY TEJEDA Current LOS: 2 Anticipated DC Date: Planned Disposition: Home Primary Insurance: MEDICARE A & B Discharge Planning Comments: CM met with patient to complete initial dc planning assessment. CM educated patient on the CM role and verbal consent given by patient to complete assessment. Patient is living with her friend Iggy with her and her 13 year old Autistic son Yohan. She stated that Iggy has 9 other people who are living there. She stated that they are homeless. At discharge she is unsure where she is going to go. She could not tell me what school her son went to, then she said she thought [employer]. She was on the phone with her when I entered her room and he was getting pulled over, she stated that he has active warrants out for him and her son was in the car. Her son did not go to school today. CM discussed availability of home health, rehab services, and medical equipment. CM will continue to follow and will assist as needed with dc plans/needs. Internal Audit Director: Dianne Stewart DCPIA - Discharge Planning Initial Assessment Updated by [email or web address]: Dianne Stewart on 03/05/19 3:05 pm * Is the patient Alert and Oriented? Yes * PCP [facility] * Pharmacy [facility]? * Preadmission Environment Home with Family * ADLs Independent * Equipment None * List name and contact numbers for known caregivers / representatives who currently or will assist patient after discharge: HALI BURNETTRIEN [phone] * Verbal permission to speak to the caregivers and representatives has been obtained from the patient. N/A * Community resources currently utilized None * Additional services required to return to the preadmission environment? Yes * Has this patient been hospitalized within the prior 30 days at any hospital? No Coverage Notice Reviewer: [id number] Jonny Stewart Notice Issued Date-Time: 03/06/2019 12:10 Notice Type: IM Discharge Notice Notice Delivered To: Patient Relationship to Patient: Milieu Manager Name: Delivery Method: HAND - Hand Delivered Eduarda Days: Prior Verbal Notification: Recipient Understood Notice: Yes Recipient Signature: Yes Med Rec Note Co-signed by Attending: Coverage Notice Comment: Reviewer: [id number] Stewart Notice Issued Date-Time: 03/11/2019 12:30 Notice Type: IM Discharge Notice Notice Delivered To: Patient Relationship to Patient: Milieu Manager Name: Delivery Method: HAND - Hand Delivered Eduarda Days: Prior Verbal Notification: Recipient Understood Notice: Yes Recipient Signature: Yes Med Rec Note Co-signed by Attending: Coverage Notice Comment: Last DP export: 03/11/19 11:43 a Patient Name: DOMINGA GARCIA Page 50911 at 1250 All edits/amendments must be made on the electronic document DICTATION DATE: 03/11/19 1250 DOCTOR OF NAPRAPATHIC MEDICINE: JOSE 03/11/19 1250 RPT#: [id number] DC DATE: STATUS: ADM IN [facility] [address] [place] [address] END OF REPORT
--- NOTE | 2019-03-11 13:01 | NUR ---
PT REPORTS ANXIETY/FEAR REGARDING DISCHARGE POST PRBC TRANSFUSION. VSS. SEE TRANSFUSION CARD. PT WITHOUT APPARENT SIGNS OF DISTRESS AT THIS TIME. CHILD IS AT BEDSIDE. BED IS IN THE LOWEST POSITION. CALL LIGHT AND BEDSIDE TABLE ARE WITIHN REACH. SIDE RAILS X 2. PT CHILD AT BEDSIDE. PT DENIES FURTHER NEEDS/CONCERNS AT THIS TIME. PRBC INFUSING WITHOUT DIFFICULTY. WILL CONT TO MONITOR.
--- NOTE | 2019-03-11 14:09 | NUR ---
PT RESTING IN BED WITH EYES CLOSED. RESPIRATIONS ARE EVEN AND UNLABORED. PRBC INFUSING WITHOUT DIFFICULTY. PT AROUSABLE WITH QUIET VERBAL STIMULATION. PT CHILD AT BEDSIDE. PT DENIES FURTHER NEEDS. WILL CONT TO MONITOR. BED IS IN THE LOWEST POSITION. CALL LIGHT AND BEDSIDE TABLE ARE WITHIN REACH. SIDE RAILS X 2.
--- NOTE | 2019-03-11 14:36 | NUR ---
PT IN TEARS REGARDING WHEREABOUTS AND DISCAHRGE POST PRBC INFUSION. PT STATES, "WE HAVE A PLACE TO GO NOW, BUT I DONT HAVE A BED OR CHAIR OR ANYTHING THERE TO LAY OR SIT ON. WHAT ARE WE SUPPOSED TO DO". PT CONT TO STATE "MY LEFT AT 9 THIS MORNING AND STILL HASNT CAME BACK. WHY HAS HE NOT COME BACK YET". ATTEMPT PHONE CALL PLACED TO PHONE NUMBERS ON FILE FOR PT AT PT REQUEST. NO ANSWER AND UNABLE TO LEAVE VOICEMAIL.
--- NOTE | 2019-03-11 14:39 | MORECARE ---
CASE MANAGEMENT DISCHARGE SUMMARY PATIENT: DOMINGA GARCIA UNIT: [id number] ADM DATE: 03/03/19 AGE: 53 : 61 SEX: F ROOM/BED: D.2206 AUTHOR: RICHELLE,DOC PHYSICIAN: REFERRING PHYSICIAN: SOPHY TEJEDA DO DATE OF SERVICE: 03/11/19 Discharge Plan Patient Name: DOMINGA GARCIA Facility: [facility]:[place] : 1965 Planned Disposition: Home Anticipated Discharge Date: Discharge Date: Expected LOS: Initial Reviewer: [id number] Initial Review Date: 03/04/2019 Generated: 03/11/19 3:38 pm Comments DCP- Discharge Planning Updated by [id number]: Dianne Stewart on 03/11/19 1:[address] Jos with Dr Ibanez's office called and stated for her to be at office at 1300 tomorrow for her procedure. DCP- Discharge Planning Updated by [id number]: Dianne Stewart on 03/11/19 11:[address] ANTICIAPTE THE PATIENT TO BE DISCHARGED AFTER THE UNIT OF BLOOD. PATIENT STATED THAT A FRIEND GAVE THEM 20 DOLLARS FOR GAS & THAT HER WAS GATHERING STUFF UP FOR THEM. I HAVE CALLED DR BOLDEN OFFICE TO CONFIRM HER APPOINTMENT FOR HER KYPHOPLASTY FOR TOMORROW I SPOKE WITH JOS, JOS WILL CALL ME BACK WITH A TIME. I ALSO ORDERED A WALKER FOR PATIENT FROM [facility] TO BE DELIVERED TO THE HOSPITAL I SPOKE WITH BULL. PATIENT WILL NEED TO AMBULATE WITH [facility] ON PRIOR TO DISCHARGE IMM SERVED AND EXPLAINED. DCP- Discharge Planning Updated by [id number]: Dianne Stewart on 03/10/19 2:[address] Spoke at length with patient and spouse about dc planning. Patient stated that she can not go back to Iggy's house due to the roaches and if not being clean or safe. She talked about her son being kicked out of [employer] school, for him to be home schooled. Spouse does not have enough gas money to get back home "Iggy's" They do not get their check till the1st of the month then they plan to go to a motel to be close to the hospital and treatment center. Patient plans to start chemo after Dr ibanez does her kyphoplasty. I have sent a letter to Mrs Schulz the ;s PO as requested. They have both given me permission to call [employer] to see if the son could return/ have any services. CM to follow and assist with dc planning DCP- Discharge Planning Updated by [id number]: Dianne Stewart on 03/06/19 11:[address] SPOKE WITH PATIENT ABOUT DC PLAN, SHE IS ABLE TO DC TO [facility]GGY'S HOUSE. HER DID NOT GET ARRESTED AND WILL BE ABLE TO HELP HER. SHE IS IN ALOT OF PAIN, BUT KNOWS THAT DR IBANEZ WILL DO THE PROCEDURE NEXT WEEK. IMM SERVED AND EXPLAINED DCP- Discharge Planning Updated by [id number]: Dianne Stewart on 03/05/19 2:[address] Patient Name: DOMINGA GARCIA Admission Status: ER Accout number: [id number] Admission Date: 03-03-2019 : 1965 Admission Diagnosis: Attending: SOPHY TEJEDA Current LOS: 2 Anticipated DC Date: Planned Disposition: Home Primary Insurance: MEDICARE A & B Discharge Planning Comments: CM met with patient to complete initial dc planning assessment. CM educated patient on the CM role and verbal consent given by patient to complete assessment. Patient is living with her friend Iggy with her and her 13 year old Autistic son Yohan. She stated that Iggy has 9 other people who are living there. She stated that they are homeless. At discharge she is unsure where she is going to go. She could not tell me what school her son went to, then she said she thought [employer]. She was on the phone with her when I entered her room and he was getting pulled over, she stated that he has active warrants out for him and her son was in the car. Her son did not go to school today. CM discussed availability of home health, rehab services, and medical equipment. CM will continue to follow and will assist as needed with dc plans/needs. Sleeve Separator: Dianne Stewart DCPIA - Discharge Planning Initial Assessment Updated by [email or web address]: Dianne Stewart on 03/05/19 3:05 pm * Is the patient Alert and Oriented? Yes * PCP [facility] * Pharmacy [facility]? * Preadmission Environment Home with Family * ADLs Independent * Equipment None * List name and contact numbers for known caregivers / representatives who currently or will assist patient after discharge: HALI GARCIA [phone] * Verbal permission to speak to the caregivers and representatives has been obtained from the patient. N/A * Community resources currently utilized None * Additional services required to return to the preadmission environment? Yes * Has this patient been hospitalized within the prior 30 days at any hospital? No Coverage Notice Reviewer: [id number] Stewart Notice Issued Date-Time: 03/06/2019 12:10 Notice Type: IM Discharge Notice Notice Delivered To: Patient Relationship to Patient: Data Compiler Name: Delivery Method: HAND - Hand Delivered Eduarda Days: Prior Verbal Notification: Recipient Understood Notice: Yes Recipient Signature: Yes Med Rec Note Co-signed by Attending: Coverage Notice Comment: Reviewer: JURGEN Stewart Notice Issued Date-Time: 03/11/2019 12:30 Notice Type: IM Discharge Notice Notice Delivered To: Patient Relationship to Patient: Data Compiler Name: Delivery Method: HAND - Hand Delivered Eduarda Days: Prior Verbal Notification: Recipient Understood Notice: Yes Recipient Signature: Yes Med Rec Note Co-signed by Attending: Coverage Notice Comment: Last DP export: 03/11/19 11:50 a Patient Name: DOMINGA GARCIA Page 13511 at 1439 All edits/amendments must be made on the electronic document DICTATION DATE: 03/11/191437 ENGINE REPAIRER PRODUCTION: JOSE 03/11/191437 RPT#: [id number] DC DATE: STATUS: ADM IN [facility] [address] [place] [address] END OF REPORT
--- NOTE | 2019-03-11 15:37 | NUR ---
UNIT (1) OF PRBC INFUSION COMPLET. VSS. PT WITHOU APPARENT SIGNS OF DISTRESS. SEE INFUSION CARD FOR POST INFUSION VITALS. PT DENIES FURTHER NEEDS. WILL CONT TO MONITOR.
--- NOTE | 2019-03-11 17:08 | NUR ---
PT ASSISTED OUT OF BED. BACK BRACE IS ON. PT IS SITTING IN BEDSIDE CHAIR. PT AMBULATED 50 FEET USING A WALKER AND PARTIAL ASSIST WITHOUT DIFFICULTY.
[2019-03-11] MEDS ORDERED: VERIPRED 220 MG/5 ML PO (17:25)
[2019-03-11] MEDS ORDERED: ROBAXIN500 MG PO (17:26)
--- NOTE | 2019-03-11 18:22 | NUR ---
ALL DISCHARGE INSTRUCTIONS COVERED. DR IBANEZ CALLED TO VERIFY KYPHOPLASTY APPT TIME. KYPHOPLASTY APPT WITH DR IBANEZ IS 03/12/19 @ [address] IBANEZ. PT NOTIFIED OF APPT. PT INFORMED TO HAVE NOTHING BY MOUTH AFTER MIDNIGHT TONIGHT. PT GIVEN ADDRESS TO DR IBANEZ OFFICE. PT ASKED FOR DR ATKINS OFFICE NUMBER. PT GIVEN DR ATKINS OFFICE NUMBER. PT DENIES FURTHER QUESTIONS/CONCERNS AT THIS TIME. PIV TO RIGHT WRIST REMOVED WITH CATHETER TIP INTACT. DRESSING APPLIED. ALL DISCHARGE PAPERS SIGNED. PT TRANSPORTED OUT OF ROOM VIA WHEELCHAIR BY [facility]. PT STATES THAT SHE HAS ALL PERSONAL BELONGINGS. PT SPOUSE AND SON ARE WAITING IN VEHICLE FOR TRANSPORTATION TO [facility].
--- NOTE | 2019-03-12 13:13 | MORECARE ---
CASE MANAGEMENT DISCHARGE SUMMARY PATIENT: DOMINGA GARCIA UNIT: [id number] ADM DATE: 03/03/19 AGE: 53 : 61 SEX: F ROOM/BED: D.2206 AUTHOR: RICHELLEDOC PHYSICIAN: REFERRING PHYSICIAN: SOPHY TEJEDA DO DATE OF SERVICE: 03/12/19 Discharge Plan Patient Name: DOMINGA GARCIA Facility: [facility]:[place] : 1965 Planned Disposition: Home Anticipated Discharge Date: Discharge Date: 03/11/2019 Expected LOS: Initial Reviewer: [email or web address] Initial Review Date: 03/04/2019 Generated: 03/12/19 2:13 pm Comments DCP- Discharge Planning Updated by [email or web address]: Dianne Stewart on 03/11/19 1:[address] Jos with Dr Ibanez's office called and stated for her to be at office at 1300 tomorrow for her procedure. DCP- Discharge Planning Updated by [email or web address]: Dianne Stewart on 03/11/19 11:[address] ANTICIAPTE THE PATIENT TO BE DISCHARGED AFTER THE UNIT OF BLOOD. PATIENT STATED THAT A FRIEND GAVE THEM 20 DOLLARS FOR GAS & THAT HER WAS GATHERING STUFF UP FOR THEM. I HAVE CALLED DR BOLDEN OFFICE TO CONFIRM HER APPOINTMENT FOR HER KYPHOPLASTY FOR TOMORROW I SPOKE WITH JOS, JOS WILL CALL ME BACK WITH A TIME. I ALSO ORDERED A WALKER FOR PATIENT FROM [facility] TO BE DELIVERED TO THE HOSPITAL I SPOKE WITH BULL. PATIENT WILL NEED TO AMBULATE WITH [facility] ON PRIOR TO DISCHARGE IMM SERVED AND EXPLAINED. DCP- Discharge Planning Updated by [id number]: Dianne Stewart on 03/10/19 2:[address] Spoke at length with patient and spouse about dc planning. Patient stated that she can not go back to Iggy's house due to the roaches and if not being clean or safe. She talked about her son being kicked out of [employer] school, for him to be home schooled. Spouse does not have enough gas money to get back home "[facility]" They do not get their check till the1st of the month then they plan to go to a motel to be close to the hospital and treatment center. Patient plans to start chemo after Dr ibanez does her kyphoplasty. I have sent a letter to Mrs Schulz the ;s PO as requested. They have both given me permission to call [employer] to see if the son could return/ have any services. CM to follow and assist with dc planning DCP- Discharge Planning Updated by [email or web address]: Dianne Stewart on 03/06/19 11:[address] SPOKE WITH PATIENT ABOUT DC PLAN, SHE IS ABLE TO DC TO [facility]. HER DID NOT GET ARRESTED AND WILL BE ABLE TO HELP HER. SHE IS IN ALOT OF PAIN, BUT KNOWS THAT DR IBANEZ WILL DO THE PROCEDURE NEXT WEEK. IMM SERVED AND EXPLAINED DCP- Discharge Planning Updated by [email or web address]: Dianne Stewart on 03/05/19 2:[address] Patient Name: DOMINGA GARCIA Admission Status: ER Accout number: [id number] Admission Date: 03-03-2019 : 1965 Admission Diagnosis: Attending: SOPHY TEJEDA Current LOS: 2 Anticipated DC Date: Planned Disposition: Home Primary Insurance: MEDICARE A & B Discharge Planning Comments: CM met with patient to complete initial dc planning assessment. CM educated patient on the CM role and verbal consent given by patient to complete assessment. Patient is living with her friend Iggy with her and her 13 year old Autistic son Yohan. She stated that Iggy has 9 other people who are living there. She stated that they are homeless. At discharge she is unsure where she is going to go. She could not tell me what school her son went to, then she said she thought [employer] She was on the phone with her when I entered her room and he was getting pulled over, she stated that he has active warrants out for him and her son was in the car. Her son did not go to school today. CM discussed availability of home health, rehab services, and medical equipment. CM will continue to follow and will assist as needed with dc plans/needs. Estimator Lumber: Dianne Stewart DCPIA - Discharge Planning Initial Assessment Updated by [email or web address]: Dianne Stewart on 03/05/19 3:05 pm * Is the patient Alert and Oriented? Yes * PCP [facility] * Pharmacy [facility]? * Preadmission Environment Home with Family * ADLs Independent * Equipment None * List name and contact numbers for known caregivers / representatives who currently or will assist patient after discharge: HALI GARCIA [phone] * Verbal permission to speak to the caregivers and representatives has been obtained from the patient. N/A * Community resources currently utilized None * Additional services required to return to the preadmission environment? Yes * Has this patient been hospitalized within the prior 30 days at any hospital? No Coverage Notice Reviewer: [email or web address] Stewart Notice Issued Date-Time: 03/06/2019 12:10 Notice Type: IM Discharge Notice Notice Delivered To: Patient Relationship to Patient: Cinder Dump Crane Operator Name: Delivery Method: HAND - Hand Delivered Eduarda Days: Prior Verbal Notification: Recipient Understood Notice: Yes Recipient Signature: Yes Med Rec Note Co-signed by Attending: Coverage Notice Comment: Reviewer: JURGEN Stewart Notice Issued Date-Time: 03/11/2019 12:30 Notice Type: IM Discharge Notice Notice Delivered To: Patient Relationship to Patient: Cinder Dump Crane Operator Name: Delivery Method: HAND - Hand Delivered Eduarda Days: Prior Verbal Notification: Recipient Understood Notice: Yes Recipient Signature: Yes Med Rec Note Co-signed by Attending: Coverage Notice Comment: Last DP export: 03/11/19 1:39 p Patient Name: DOMINGA GARCIA Page [id number] at 1313 All edits/amendments must be made on the electronic document DICTATION DATE: 03/12/19 1313 WORKERS COMPENSATION ADMINISTRATOR: JOSE 03/12/19 1313 RPT#: [id number] DC DATE:03/11/19 STATUS: DIS IN [facility] [address] [place] [address] END OF REPORT
== END 2019-03-11 18:26 | disposition home or self-care (01) | DRG 543 ==
LOC: D.ER 20:08 → D.MS 23:37
PROVIDERS: Family Medicine; Internal Medicine Hematology & Oncology; ADMIT Family Medicine; ATTEND Family Medicine
DX: M84.58XA Pathological fracture in neoplastic disease, other specified site, initial encounter for fracture (principal); S22.081A Stable burst fracture of T11-T12 vertebra, initial encounter for closed fracture; N17.9 Acute kidney failure, unspecified; F17.203 Nicotine dependence unspecified, with withdrawal; C79.51 Secondary malignant neoplasm of bone; W07.XXXA Fall from chair, initial encounter; Y92.009 Unspecified place in unspecified non-institutional (private) residence as the place of occurrence of the external cause; C50.919 Malignant neoplasm of unspecified site of unspecified female breast; D64.9 Anemia, unspecified; I95.9 Hypotension, unspecified; E83.52 Hypercalcemia

== ENCOUNTER 2019-03-19 10:40 | Emergency (ER) | payer MEDICARE ==
[~2019-03-19] VITALS: Ht 165.1 cm; Wt 81.8 kg
[~2019-03-19 10:40] MED LIST: ACETAMINOPHEN500 M1 PO; BUPROPION XL300 MG PO; ROBAXIN500 MG PO; VERIPRED 220 MG/5 ML PO
[2019-03-19 11:00] VITALS: Ht 165.1 cm; Wt 81.8 kg
[2019-03-19] MEDS ORDERED: HYDROCODONE-A1 UDTA2 PO (13:46)
[2019-03-19 14:05] VITALS: BP 117/69
[2019-03-20] MEDS ORDERED: MACROBID100 MG PO (06:48)
== END 2019-03-19 14:05 | disposition home or self-care (01) ==
LOC: D.ER 10:40
DX: R55 Syncope and collapse (principal); M54.6 Pain in thoracic spine; R07.81 Pleurodynia

== ENCOUNTER 2019-03-20 04:58 | Emergency (ER) | payer MEDICARE ==
[~2019-03-20] VITALS: Ht 165.1 cm; Wt 77.3 kg
[~2019-03-20 04:58] MED LIST changes: +HYDROCODONE-A1 UDTA2 PO
[2019-03-20 04:59] VITALS: Ht 165.1 cm; Wt 77.3 kg
[2019-03-20 06:02] LABS: HEMATOCRIT 27.9 % (36.0-48.0); MCH 28.8 pg (26.0-34.0); MCHC 32.3 g/dL (31.0-37.0); MCV 89.1 fL (80.0-100.0); MEAN PLATELET VOLUME 11.1 fL (7.4-10.4); PLATELET COUNT 57 10x3/uL (130-400); RBC 3.13 10x6/uL (4.00-5.40); RDW 16.3 % (11.5-14.5); WBC 6.5 10x3/uL (4.8-10.8)
[2019-03-20 06:15] LABS: UDS - AMPHET POSITIVE QUAL (NEGATIVE); UDS - BARB NEGATIVE QUAL (NEGATIVE); UDS - BENZO NEGATIVE QUAL (NEGATIVE); UDS - COCAINE NEGATIVE QUAL (NEGATIVE); UDS - OPIATE POSITIVE QUAL (NEGATIVE); UDS - PCP NEGATIVE QUAL (NEGATIVE); UDS - THC POSITIVE QUAL (NEGATIVE)
[2019-03-20 06:19] LABS: ALBUMIN 3.1 g/dL (3.4-5.0); ANION GAP 15.8 mmol/L (8-16); BILIRUBIN - TOTAL 0.3 mg/dL (0.2-1.3); CALCIUM 8.5 mg/dL (8.5-10.1); CARBON DIOXIDE 27.4 mmol/L (21.0-32.0); CREATININE - SERUM 0.9 mg/dL (0.6-1.3); POTASSIUM - SERUM 4.2 mmol/L (3.5-5.1); PROTEIN - SERUM 6.8 g/dL (6.4-8.2)
[2019-03-20 06:43] LABS: APPEARANCE CLOUDY (CLEAR); BILIRUBIN NEGATIVE (NEGATIVE); COLOR YELLOW (YELLOW); GLUCOSE NEGATIVE (NEGATIVE); KETONE NEGATIVE (NEGATIVE); NITRITE NEGATIVE (NEGATIVE); PROTEIN 2+ mg/dL (NEGATIVE); UROBILINOGEN NORMAL (NORMAL)
[2019-03-20 06:44] LABS: BACTERIA MANY /hpf (NONE SEEN); EPITHELIAL CELLS 0-5 /hpf (0-5); RED CELLS - URINE 0-5 /hpf (0-5)
[2019-03-20] MEDS ORDERED: MACROBID100 MG PO (06:48)
[2019-03-20 06:52] VITALS: BP 108/67
[2019-03-20 09:02] LABS: EOSINOPHILS 1 % (0-7); LYMPHOCYTES 16 % (15-50); MONOCYTES 7 % (2-11); NEUTROPHILS 70 % (40-80); PLATELET ESTIMATE DECREASED
[2019-03-20 09:03] LABS: ANISOCYTOSIS OCC; ROULEAUX OCC
== END 2019-03-20 06:52 | disposition home or self-care (01) ==
LOC: D.ER 04:58
PROVIDERS: Family Medicine
DX: M54.5 Low back pain (principal); D64.9 Anemia, unspecified; C79.9 Secondary malignant neoplasm of unspecified site; F19.10 Other psychoactive substance abuse, uncomplicated; D69.6 Thrombocytopenia, unspecified; N39.0 Urinary tract infection, site not specified

== ENCOUNTER 2019-03-27 10:45 | Outpatient (CLI) | payer MEDICARE ==
[~2019-03-27] VITALS: Ht 165.1 cm; Wt 75.0 kg
[~2019-03-27 10:45] MED LIST changes: +MACROBID100 MG PO
[2019-03-27 12:07] VITALS: Ht 165.1 cm; Wt 75.0 kg
--- NOTE | 2019-03-27 13:56 | NUR ---
DR. ATKINS CALLED ABOUT PAIN MANAGEMENT, 45 MIN AFTER PRESCRIPTIONS FROM OFFICE GIVEN. NEW ORDERS RECEIVED AND GIVEN
== END 2019-03-27 16:15 ==
LOC: D.OPS 10:45
PROVIDERS: ATTEND Internal Medicine Hematology & Oncology
DX: D64.9 Anemia, unspecified (principal)

== ENCOUNTER 2019-05-09 10:58 | Observation (INO) | payer MEDICARE ==
[~2019-05-09] VITALS: Ht 165.1 cm; Wt 72.7 kg
[2019-05-09] MEDS ORDERED: NAPROXEN250 MG PO (12:25)
[2019-05-09] MEDS ORDERED: DURAGESIC1 PATCH .1 TRANSDERM (12:26)
[2019-05-09 12:39] VITALS: BP 98/56; BMI 26.6
--- NOTE | 2019-05-09 16:48 | NUR ---
PATIENT COMPLAINS OF ITCHING, NO RASH OR HIVES NOTED,
--- NOTE | 2019-05-09 16:56 | NUR ---
PATIENT SUDDENLY BEGINS TO HAVE LABORED BREATHING AND HIVES APPEAR ON BACK. RAPID RESPONSE CALLED, O2 SAT 96% ON RA, O2 PLACED BY NASAL CANNULA AT 2 LPM. PATIENT IN MODERATE DISTRESS. BP 128/72, H2 98. IV BENADRYL GIVEN AT 1702, RAPID RESPONSE TEAM ARRIVES, REPORT OF SITUATION GIVEN.
--- NOTE | 2019-05-09 17:10 | NUR ---
BREATHING LESS LABORED, RR RATE 19, O2 SAT 100% ON 3 LPM NC, RAPID RESPONSE TEAM CONTINUES TO BE IN ROOMK, EKG BEING PERFORMED DUE TO PATIENT COMPLAIN OF PAIN IN CHEST AND BACK. BP 116/69. SPOUSE IN HALLWAY, SPOUSE UPDATED ON PATIENT'S CONDITION
--- NOTE | 2019-05-09 17:19 | NUR ---
SOLUMEDROL IV GIVEN PER EMAR. PATIENT CONTINUES TO IMPROVE, RESPIRATORY RATE 18, O2 SAT 100% ON 3 LPM NC, RAPID RESPONSE TEAM REVIEWING CHART AT NURSES DESK OUTSIDE ROOM
[2019-05-09 18:00] LABS: CREATINE KINASE 36 UL (21-215)
[2019-05-09 18:02] LABS: TROPONIN-I < 0.017 ng/mL (0.000-0.060)
--- NOTE | 2019-05-09 18:15 | NUR ---
DR ATKINS CALLS TO CHECK ON PATIENT AND STATES THAT SHE WILL COME SEE PATIENT AND DISCUSS ADMISSION FOR OBSERVATION VS DISCHARGE HOME THIS EVENING. DINNER TRAY ORDERED FOR PATIENT. PATIENT LYING IN BED, HIVES GONE, PATIENT DENIES ITCHING, O2 SAT 98% ON RA, LUNG SOUNDS CLEAR, VSS.
--- NOTE | 2019-05-09 19:05 | NUR ---
PATIENT TRANSFERRED TO ROOM 2218 FOR OVERNIGHT OBSERVATION BY WHEELCHAIR IN STABLE CONDITION
--- NOTE | 2019-05-09 19:15 | NUR ---
PT TO FLOOR. DENIES PAIN AT THIS TIME. NO SIGNS OR SYMPTOMS OF ALLERGIC REACTION AT THIS TIME. HAS RIGHT WRIST IV THAT IS SALINE LOCKED. WANTS TO KEEP ON REGULAR CLOTHES AT THIS TIME. VITAL SIGNS ARE STABLE. HAS FENTANYL PATCH ON AND STATES SHE APPLIED IT YESTERDAY. DENIES NEW ONE AT THIS TIME. STATES SHE IS TIRED AND WOULD LIKE TO GO TO BED SOON POSSIBLE. DENIES FURTHER NEEDS. HAS CALL LIGHT IN REACH. BED LOCKED AND LOWERED. CPOC.
[2019-05-09 20:01] VITALS: BP 101/81
[2019-05-09 23:52] VITALS: BP 101/81; Ht 165.1 cm; Wt 72.7 kg
[2019-05-10] VITALS: BP 117/73
--- NOTE | 2019-05-10 01:33 | NUR ---
ANSWERED PATIENT CALL LIGHT. STATES SHE FELL ASLEEP AND WOKE UP VERY SWEATY. PATIENT CLOTHING DOES FEEL DAMP. TEMPERATURE ASSESSED AND 97.6. PATIENT WANTED TO TAKE SHOWER. ASSISTED WITH SHOWER NEEDS. BEDDING CHANGED. DENIES PAIN AT THIS TIME. RETURNED BACK TO BED WITH NO ISSUES. DENIES FURTHER NEEDS. CALL LIGHT IN REACH. CPOC.
[2019-05-10 04:00] VITALS: BP 107/53
[2019-05-10 05:44] LABS: BASOPHILS 0.2 % (0-2); EOSINOPHILS 1.4 % (0-7); HEMATOCRIT 29.8 % (36.0-48.0); HEMOGLOBIN 9.5 g/dL (12-16); IMMATURE GRANULOCYTES 6.1 % (0-5); LYMPHOCYTES 18.1 % (15-50); MCH 29.8 pg (26.0-34.0); MCHC 31.9 g/dL (31.0-37.0); MCV 93.4 fL (80.0-100.0); MEAN PLATELET VOLUME 10.3 fL (7.4-10.4); MONOCYTES 5.9 % (2-11); NEUTROPHILS 68.3 % (40-80); RBC 3.19 10x6/uL (4.00-5.40); RDW 16.3 % (11.5-14.5); WBC 6.6 10x3/uL (4.8-10.8)
[2019-05-10 06:07] LABS: ALBUMIN 2.7 g/dL (3.4-5.0); ALKALINE PHOSPHATASE 171 U/L (46-116); ALT (SGPT) 13 U/L (10-68); BILIRUBIN - TOTAL 0.32 mg/dL (0.2-1.3); CALC OSMOLALITY 283 mosm/kg (275-300); CALCIUM 8.9 mg/dL (8.5-10.1); CARBON DIOXIDE 26.3 mmol/L (21.0-32.0); CHLORIDE - SERUM 105 mmol/L (98-107); CREATININE - SERUM 0.7 mg/dL (0.6-1.3); GLUCOSE 156 mg/dL (74-106); POTASSIUM - SERUM 4.5 mmol/L (3.5-5.1); PROTEIN - SERUM 6.8 g/dL (6.4-8.2); SODIUM 140 mmol/L (136-145); UREA NITROGEN 17 mg/dL (7-18); eGFR NON AFRICAN AMERICAN > 90 mL/min (90-120)
[2019-05-10 06:08] LABS: PLATELET COUNT 46 10x3/uL (130-400)
[2019-05-10 06:43] LABS: PLATELET ESTIMATE DECREASED
--- NOTE | 2019-05-10 07:40 | NUR ---
PT RESTING IN BED. NO SIGNS OF DISTRESS. IV TO RIGHT WRIST PATENT NO REDNESS OR TENDERNESS. DENIES ANY FURTHER NEED AT THIS TIME. CALL LIGHT IN REACH. BED LOW POSITION. NO FAMILY AT BEDSIDE AT THIS TIME.
[2019-05-10 07:59] VITALS: BP 87/57
--- NOTE | 2019-05-10 11:55 | NUR ---
DISCHARGE INSTRUCTIONS GIVEN. SEEMS TO UNDERSTAND INSTRUCTIONS. IV OUT TIP INTACT. LEFT WITH HOSPITAL STAFF TO GO HOME IN PERSONAL RIDE WITH .
== END 2019-05-10 11:59 | disposition home or self-care (01) ==
LOC: OBSVTIME 10:58 → D.MS 10:58 → D.OPS 10:58 → EDSTATUS 11:00 → D.OPS 11:00 → D.MS 19:13 → D.OPS 19:13 → D.MS 05-10 11:59 → D.OPS 05-10 11:59 → D.MS 05-12 15:10
PROVIDERS: ADMIT Internal Medicine Hematology & Oncology; ATTEND Internal Medicine Hematology & Oncology
DX: T80.92XA Unspecified transfusion reaction, initial encounter (principal); D64.9 Anemia, unspecified; D69.6 Thrombocytopenia, unspecified; C50.919 Malignant neoplasm of unspecified site of unspecified female breast; C78.00 Secondary malignant neoplasm of unspecified lung; K75.9 Inflammatory liver disease, unspecified; F17.200 Nicotine dependence, unspecified, uncomplicated; G89.29 Other chronic pain; D63.0 Anemia in neoplastic disease

== ENCOUNTER 2019-05-27 08:23 | Outpatient (CLI) | payer MEDICARE ==
[~2019-05-27] VITALS: Ht 165.1 cm; Wt 72.7 kg
[~2019-05-27 08:23] MED LIST changes: +DURAGESIC1 PATCH .1 TRANSDERM; +NAPROXEN250 MG PO
[2019-05-27 09:17] VITALS: Ht 165.1 cm; Wt 72.7 kg
--- NOTE | 2019-05-27 09:30 | NUR ---
WHILE DOING ASSESS PT TOLD SHE WAS CONCERNED ABOUT LOOSING WEIGHT. SHE STATED SHE'S LOOSING 5LBS PER WK. 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 PT STATED SHE'S ONLY ABLE TO EAT SANDWICHES BECAUSE THE HOUSE SHE'S LIVING IN DOESN'T HAVE ELECTRICITY D/T THE LADY SHE'S RENTING THE ROOM FROM DIDN'T PAY THE ELECTRICITY AND MOVED OUT. PT STATED SHE DOESN'T HAVE THE MONEY TO PAY FOR IT. STATED THERE'S SEVERAL FAMILIES LIVING IN THE HOUSE AND THERE IS 2 DIAGNOSTICS TECH CHILDREN LIVING IN THE HOME AND ONE CHILD EVERY OTHER WEEKEND. PT STATED THEY USE AN EXSTENTION CORD AND CONNECT IT FROM A NEIGHBOR'S HOUSE TO RUN AN ELECTRIC HEATER. PT ASKED IF THERE WAS CASE MANAGEMENT THAT COULD HELP BC SHE'S CONCERNED ABOUT THE KIDS INCLUDING HERS. 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
--- NOTE | 2019-05-27 14:13 | NUR ---
1355 BLOOD HAS COMPLETED. PT ATE 50% LUNCH. DOSING NOW. NS INFUSING THRU LINE. 1410 CASE MANAGEMENT HERE GAVE PT LIST OF SHELTERS AND COMMUNITY SERVICES WHO CAN HELP WITH UTILITY BILLS.
--- NOTE | 2019-05-27 16:12 | NUR ---
1425 BLOOD HAS COMPLETED DENIES PROBLEMS WITH TRANSFUSION, LINE IS FLUSHED WITH NS. IV DC'D WITH CATH INTACT, PT. UP TO BR. DC INSTS REVIEWED RELEASED IN WC
== END 2019-05-27 14:35 | disposition home or self-care (01) ==
LOC: D.OPS 08:23
PROVIDERS: ATTEND Internal Medicine Hematology & Oncology
DX: D64.9 Anemia, unspecified (principal)

== ENCOUNTER 2019-06-03 22:39 | Inpatient (IN) | payer MEDICARE ==
[~2019-06-03] VITALS: Ht 165.1 cm; Wt 79.6 kg
[2019-06-03 23:30] LABS: APPEARANCE CLEAR (CLEAR); BILIRUBIN NEGATIVE (NEGATIVE); COLOR DK YELLOW (YELLOW); GLUCOSE NEGATIVE (NEGATIVE); KETONE NEGATIVE (NEGATIVE); NITRITE NEGATIVE (NEGATIVE); PROTEIN 1+ mg/dL (NEGATIVE)
[2019-06-03 23:32] LABS: BACTERIA FEW /hpf (NEGATIVE); EPITHELIAL CELLS 0-5 /hpf (0-5); RED CELLS - URINE 0-5 /hpf (0-5); WHITE CELLS - URINE 0-5 /hpf (NEGATIVE)
[2019-06-03 23:48] LABS: CALC OSMOLALITY 280 mosm/kg (275-300); CALCIUM 8.5 mg/dL (8.5-10.1); CARBON DIOXIDE 28.5 mmol/L (21.0-32.0); CHLORIDE - SERUM 104 mmol/L (98-107); CREATININE - SERUM 0.8 mg/dL (0.6-1.3); GLUCOSE 131 mg/dL (74-106); SODIUM 139 mmol/L (136-145); UREA NITROGEN 14 mg/dL (7-18); eGFR NON AFRICAN AMERICAN 79 mL/min (90-120)
[2019-06-03 23:49] LABS: HEMATOCRIT 26.3 % (36.0-48.0); HEMOGLOBIN 8.6 g/dL (12-16); LYMPHOCYTES 21.9 % (15-50); MCH 30.6 pg (26.0-34.0); MCHC 32.7 g/dL (31.0-37.0); MCV 93.6 fL (80.0-100.0); MEAN PLATELET VOLUME 10.1 fL (7.4-10.4); NEUTROPHILS 64.9 % (40-80); RBC 2.81 10x6/uL (4.00-5.40); RDW 15.1 % (11.5-14.5); WBC 4.9 10x3/uL (4.8-10.8)
[2019-06-03 23:51] LABS: ALBUMIN 2.5 g/dL (3.4-5.0); ALKALINE PHOSPHATASE 218 U/L (46-116); ALT (SGPT) 21 U/L (10-68); BILIRUBIN - TOTAL 0.29 mg/dL (0.2-1.3); PROTEIN - SERUM 6.5 g/dL (6.4-8.2)
[2019-06-03 23:54] LABS: PLATELET COUNT 43 10x3/uL (130-400)
[2019-06-04] VITALS (9 sets, daily range): BP systolic 77–147; BP diastolic 33–64; Ht 165.1 cm; Wt 79.6 kg
--- NOTE | 2019-06-04 00:59 | NUR ---
BP 70/39 RIGHT ARM, LEFT ARM RESERVED. EDP VERBAL ORDER FOR NS BOLUS AT THIS TIME.
--- NOTE | 2019-06-04 02:10 | NUR ---
RECIEVED REPORT FROM [facility]. PT ARRIVED ON STRETCHER, AAOX4, VSS, WITH SPB 95. PT STATES BP HAS BEEN "LOW" FOR A WHILE. PT DENIES PAIN AT THIS TIME. AZITHROMYCIN INFUSING ON ARRIVAL. ALTHOUGH PIV ON RFA INFILTRATED. PT IS A GOOD HISTORIAN. INITIAL ASSESSMENT COMPLETED. PT DENIES ANY FURTHER NEEDS AT THIS TIME. WILL CPOC.
--- NOTE | 2019-06-04 02:25 | NUR ---
RESTARTED A NEW PIV ON R.WRIST 20G X1 STICK. PT TOLERATE WELL. AZITHROMYCIN INFUSING AT THIS TIME. WILL CPOC.
[2019-06-04 06:05] LABS: BASOPHILS 0.3 % (0-2); EOSINOPHILS 2.4 % (0-7); HEMATOCRIT 23.8 % (36.0-48.0); IMMATURE GRANULOCYTES 5.8 % (0-5); LYMPHOCYTES 25.2 % (15-50); MCH 29.1 pg (26.0-34.0); MCHC 30.3 g/dL (31.0-37.0); MEAN PLATELET VOLUME 10.3 fL (7.4-10.4); MONOCYTES 10.8 % (2-11); NEUTROPHILS 55.5 % (40-80); RBC 2.47 10x6/uL (4.00-5.40); RDW 15.6 % (11.5-14.5); WBC 3.8 10x3/uL (4.8-10.8)
[2019-06-04 06:16] LABS: CALC OSMOLALITY 281 mosm/kg (275-300); CHLORIDE - SERUM 108 mmol/L (98-107); CREATININE - SERUM 0.6 mg/dL (0.6-1.3); GLUCOSE 93 mg/dL (74-106); MAGNESIUM - SERUM 1.9 mg/dL (1.8-2.4); PHOSPHOROUS 3.8 mg/dL (2.5-4.9); POTASSIUM - SERUM 3.9 mmol/L (3.5-5.1); SODIUM 142 mmol/L (136-145); UREA NITROGEN 11 mg/dL (7-18); eGFR NON AFRICAN AMERICAN > 90 mL/min (90-120)
[2019-06-04 06:35] LABS: APTT 32.9 SECONDS (22.8-39.4); D-DIMER-QUANTITATIVE 1.82 ug/mLFEU (0.20-0.54)
[2019-06-04 06:36] LABS: INR 1.15 (0.85-1.17); PROTIME 14.2 SECONDS (11.6-15.0)
[2019-06-04 07:02] LABS: MCV 96.4 fL (80.0-100.0)
[2019-06-04 07:08] LABS: HEMOGLOBIN 7.2 g/dL (12-16); PLATELET COUNT 41 10x3/uL (130-400)
--- NOTE | 2019-06-04 07:17 | NUR ---
WAS NOTIFIED BY LAB OF [facility] OF 7.2, KATHRYN ANNA.
--- NOTE | 2019-06-04 07:29 | NUR ---
PT NEEDS HEART MONITOR NON AVAILABLE AT THIS TIME, PLACED ON WAITING LIST. PT RESTING COMFORTABLY IN BED, WITH EYES CLOSED, EASILY AROUSES TO VOICE. RESP EVEN AND NONLABORED ON RA. NS INFUSING TO RT WRIST AT 30CC/HR. PT DENIES ANY NEEDS AT THIS TIME. CALL LIGHT IN REACH,NAD NOTED,W ILL CONTINUE TO MONITOR.
--- NOTE | 2019-06-04 08:37 | NUR ---
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
--- NOTE | 2019-06-04 11:52 | NUR ---
BLOOD SUGAR OF 308, 12 UNITS OF INSULIN GIVEN PER S/S. PT STILL UPSET ABOUT DIABETIC MEDICATIONS NOT BEING STARTED. STATES THAT THE INSULIN DOES NOT HELP AT ALL.
--- NOTE | 2019-06-04 13:16 | MORECARE ---
CASE MANAGEMENT DISCHARGE SUMMARY PATIENT: HUBERT GARCIA UNIT: [id number] ADM DATE: 06/04/19 AGE: 53 : 61 SEX: F ROOM/BED: D.2125 AUTHOR: KALINA PEOPLES PHYSICIAN: REFERRING PHYSICIAN: ELIZABETH RODRIGES MD DATE OF SERVICE: 06/04/19 Discharge Plan Patient Name: HUBERT GARCIA [facility] : 1965 Planned Disposition: Home Anticipated Discharge Date: 06/06/19 Discharge Date: Expected LOS: 2 Initial Reviewer: [email or web address] Initial Review Date: 06/04/2019 Generated: 06/04/19 2:16 pm DCPIA - Discharge Planning Initial Assessment Updated by [email or web address]: Claudia Alvarado on 06/04/19 1:14 pm * Is the patient Alert and Oriented? Yes * How many steps to enter\exit or inside your home? * PCP Dr. Contreras * Pharmacy [facility] [address] * Preadmission Environment Home with Family * ADLs Independent * Equipment Rolling Walker * List name and contact numbers for known caregivers / representatives who currently or will assist patient after discharge: Iain Garcia - [facility] - [phone] * Verbal permission to speak to the caregivers and representatives has been obtained from the patient. Yes * Additional services required to return to the preadmission environment? No * Can the patient safely return to the preadmission environment? Yes * Has this patient been hospitalized within the prior 30 days at any hospital? No Patient Name: HUBERT GARCIA Page [id number] at 1316 All edits/amendments must be made on the electronic document DICTATION DATE: 06/04/19 1316 DAIRY EQUIPMENT INSTALLER: JOSE 06/04/19 1316 RPT#: [id number] [place] DATE: STATUS: ADM IN [facility] [address] [place] [address] END OF REPORT
--- NOTE | 2019-06-04 13:31 | MORECARE ---
CASE MANAGEMENT DISCHARGE SUMMARY PATIENT: HUBERT GARCIA UNIT: [id number] ADM DATE: 06/04/19 AGE: 53 : 61 SEX: F ROOM/BED: D.1045 AUTHOR: RICHELLE,DOC PHYSICIAN: REFERRING PHYSICIAN: ELIZABETH RODRIGES MD DATE OF SERVICE: 06/04/19 Discharge Plan Patient Name: HUBERT GARCIA Facility: [facility]:[place] : 1965 Planned Disposition: Home Anticipated Discharge Date: 06/06/19 Discharge Date: Expected LOS: 2 Initial Reviewer: [email or web address] Initial Review Date: 06/04/2019 Generated: 06/04/19 2:31 pm Comments DCP- Discharge Planning Updated by [email or web address]: Claudia Alvarado on 06/04/19 12:[address] DC PLAN: Return home with and other's living in the home. ANTICIPATED DC NEEDS: No electricity in the home. CM met with patient to complete initial dc planning assessment. CM educated patient on the CM role and verbal consent given by patient to complete assessment. CM verified patient's address, phone number, and emergency contact phone numbers. Patient lives at home with her , 13 yo autistic son, and other adults living in a mobile home. She reports she is renting space in a double wide that the electricity has been turned off. She reports there are several different people living in the home and the otr owner operator has not paid the electric bill and all other members living there are refusing to pay the back pay to get the electricity turned back on. She reports she has a 13 yo son living there who has autism and he attends [employer] and she is wanting to move but she cant find anywhere to go that she can afford. She reports when they have enough money they go to 's truck stop to take a shower. CM discussed that her 13 yo son needed to have electricity and that the living situation was not ideal for her son. She verbalized understanding and reports she and her are in the process of finding an affordable place to live. She stated she does not get food stamps as she has too much income to qualify. Cm reported this information to Patty COY. At discharge patient plans to return home. CM informed her that she needed to get in contact with [facility] housing and ask for assistance. She verbalized understanding and asked cm to not report her. She said is she loses her son she is going to "beat that bitches ass for not paying the electric bill". CM discussed availability of home health, rehab services, and medical equipment. Patient denied known discharge needs at this time. Patient reports her will transport her home at time of discharge. CM will continue to follow and will assist as needed with dc plans/needs. Claudia Alvarado RN, [facility] DCPIA - Discharge Planning Initial Assessment Updated by [id number]: Claudia Alvarado on 06/04/19 1:14 pm * Is the patient Alert and Oriented? Yes * How many steps to enter\\exit or inside your home? * PCP Dr. Contreras * Pharmacy [facility] [address] * Preadmission Environment Home with Family * ADLs Independent * Equipment Rolling Walker * List name and contact numbers for known caregivers / representatives who currently or will assist patient after discharge: Iain Garcia - - [phone] * Verbal permission to speak to the caregivers and representatives has been obtained from the patient. Yes * Additional services required to return to the preadmission environment? No * Can the patient safely return to the preadmission environment? Yes * Has this patient been hospitalized within the prior 30 days at any hospital? No Last DP export: 06/04/19 12:16 Patient Name: HUBERT GARCIA Page [phone] at 1331 All edits/amendments must be made on the electronic document DICTATION DATE: 06/04/19 133 DELICATESSEN CLERK: JOSE 06/04/19 1330 RPT#: [id number] DC DATE: STATUS: ADM IN [facility] [address] [place] [address] END OF REPORT
--- NOTE | 2019-06-04 14:48 | NUR ---
FIRST UNIT OF PRBCS STARTED INFUSING. VITAL SIGNS STABLE. WILL MONITOR PT FOR FIRST 15MIN.
--- NOTE | 2019-06-04 14:56 | NUR ---
PT TOLERATING INFUSION, VITAL SIGNS STABLE. PT DENIES ANY NEEDS AT THIS TIME, CALL LIGHT IN REACH,N AD NOTED, WILL CONTINUE TO MONITOR.
--- NOTE | 2019-06-04 18:23 | NUR ---
SECOND UNIT OF PRBCS STARTED INFUSING AT THIS TIME. VITAL SIGNS STABLE. PT DENIES ANY NEEDS AT THIS TIME, CALL LIGHT IN REACH, NAD NOTED.
--- NOTE | 2019-06-04 21:36 | NUR ---
PRBCS FINISHED INFUSING, LINE FLUSHING WITH NS. VITALS STABLE. NO S/S ADVERSE REACTION NOTED.
--- NOTE | 2019-06-05 03:20 | NUR ---
RESTING WITH EYES CLOSED, RESPERATIONS EVEN, NO S/S DISTRESS NOTED.
[2019-06-05 04:00] VITALS: BP 141/72
[2019-06-05 05:07] LABS: BASOPHILS 0.2 % (0-2); EOSINOPHILS 2.6 % (0-7); IMMATURE GRANULOCYTES 5.6 % (0-5); LYMPHOCYTES 27.2 % (15-50); MCH 29.4 pg (26.0-34.0); MCHC 32.3 g/dL (31.0-37.0); MEAN PLATELET VOLUME 10.2 fL (7.4-10.4); MONOCYTES 8.8 % (2-11); NEUTROPHILS 55.6 % (40-80); RDW 17.1 % (11.5-14.5)
[2019-06-05 05:10] LABS: HEMATOCRIT 29.4 % (36.0-48.0); HEMOGLOBIN 9.5 g/dL (12-16); PLATELET COUNT 45 10x3/uL (130-400); RBC 3.23 10x6/uL (4.00-5.40)
[2019-06-05 05:24] LABS: CALC OSMOLALITY 279 mosm/kg (275-300); CARBON DIOXIDE 26.6 mmol/L (21.0-32.0); CHLORIDE - SERUM 106 mmol/L (98-107); CREATININE - SERUM 0.5 mg/dL (0.6-1.3); GLUCOSE 91 mg/dL (74-106); MAGNESIUM - SERUM 1.8 mg/dL (1.8-2.4); PHOSPHOROUS 4.2 mg/dL (2.5-4.9); POTASSIUM - SERUM 3.8 mmol/L (3.5-5.1); SODIUM 141 mmol/L (136-145); UREA NITROGEN 11 mg/dL (7-18); eGFR NON AFRICAN AMERICAN > 90 mL/min (90-120)
[2019-06-05 08:00] VITALS: BP 136/74
--- NOTE | 2019-06-05 08:00 | NUR ---
REPORT RECEIVED. WILL CONTINUE WITH POC. PT CURRENTLY LYING SEMI FOWLERS. CALL LIGHT W/I REACH. PT IS AAO AND UP AD WHIT. RR EVEN AND UNLABORED ON RA. NS INFUSING @100ML/HR VIA R.WRIST PIV. NO S/S OF DISTRESS NOTED. PT DENIES ANY NEEDS. WILL CTM.
[2019-06-05 12:00] VITALS: BP 122/57
--- NOTE | 2019-06-05 14:33 | NUR ---
I have reviewed this patient and I concur with the Shift Assessment completed by the Licensed Practical Nurse today this shift.
[2019-06-05 16:34] VITALS: BP 111/55
--- NOTE | 2019-06-05 17:05 | MORECARE ---
CASE MANAGEMENT DISCHARGE SUMMARY PATIENT: HUBERT GARCIA UNIT: [id number] ADM DATE: 06/04/19 AGE: 53 : 61 SEX: F ROOM/BED: D.7339 AUTHOR: RICHELLE,DOC PHYSICIAN: REFERRING PHYSICIAN: ELIZABETH RODRIGES MD DATE OF SERVICE: 06/05/19 Discharge Plan Patient Name: HUBERT GARCIA Facility: [facility]:[place] : 1965 Planned Disposition: Home Anticipated Discharge Date: 06/06/19 Discharge Date: Expected LOS: 2 Initial Reviewer: [email or web address] Initial Review Date: 06/04/2019 Generated: 06/05/19 6:05 pm Comments DCP- Discharge Planning Updated by [id number]: Marco Brambila on 06/05/19 4:[address] Patient Name: HUBERT GARCIA Encounter No: [id number] : 1965 Primary Insurance: MEDICARE A & B Anticipated DC Date: 06-06-2019 Planned Disposition: Home DCP follow-up note: CM CALLED [facility], , PROVIDED INFORMATION TO DOMINGA OF PT'S HOME NOT HAVING ELECTRICITY AND THAT A 13 YEAR OLD MALE CHILD WAS LIVING IN THE HOME WITH COOL TEMPERATURES. REFERRAL TAKEN FOR [facility]. [facility] TO FOLLOW UP WITH FAMILY AT HOME. PT PLANS TO DISCHARGE HOME WITH FAMILY, SPOUSE TO TRANSPORT HOME. PT HAS NO ANTICIPATED DISCHARGE NEEDS AT THIS TIME. CM TO CONTINUE TO FOLLOW AND ASSIST NEEDED. NUVIA Worthy DCP- Discharge Planning Updated by [email or web address]: Claudia Alvarado on 06/04/19 12:[address] DC PLAN: Return home with and other's living in the home. ANTICIPATED DC NEEDS: No electricity in the home. CM met with patient to complete initial dc planning assessment. CM educated patient on the CM role and verbal consent given by patient to complete assessment. CM verified patient's address, phone number, and emergency contact phone numbers. Patient lives at home with her , 13 yo autistic son, and other adults living in a mobile home. She reports she is renting space in a double wide that the electricity has been turned off. She reports there are several different people living in the home and the farm owner operator has not paid the electric bill and all other members living there are refusing to pay the back pay to get the electricity turned back on. She reports she has a 13 yo son living there who has autism and he attends [employer] and she is wanting to move but she cant find anywhere to go that she can afford. She reports when they have enough money they go to [employer]'s truck stop to take a shower. CM discussed that her 13 yo son needed to have electricity and that the living situation was not ideal for her son. She verbalized understanding and reports she and her are in the process of finding an affordable place to live. She stated she does not get food stamps as she has too much income to qualify. Cm reported this information to Patty COY. At discharge patient plans to return home. CM informed her that she needed to get in contact with [facility] and ask for assistance. She verbalized understanding and asked cm to not report her. She said is she loses her son she is going to "beat that bitches ass for not paying the electric bill". CM discussed availability of home health, rehab services, and medical equipment. Patient denied known discharge needs at this time. Patient reports her will transport her home at time of discharge. CM will continue to follow and will assist as needed with dc plans/needs. Claudia Alvarado RN, [facility] DCPIA - Discharge Planning Initial Assessment Updated by [email or web address]: Claudia Alvarado on 06/04/19 1:14 pm * Is the patient Alert and Oriented? Yes * How many steps to enter\\exit or inside your home? * PCP Dr. Contreras * [facility] [address] * Preadmission Environment Home with Family * ADLs Independent * Equipment Rolling Walker * List name and contact numbers for known caregivers / representatives who currently or will assist patient after discharge: Iain Garcia - - [phone] * Verbal permission to speak to the caregivers and representatives has been obtained from the patient. Yes * Additional services required to return to the preadmission environment? No * Can the patient safely return to the preadmission environment? Yes * Has this patient been hospitalized within the prior 30 days at any hospital? No Last DP export: 06/04/19 12:31 Patient Name: HUBERT GARCIA Page [id number] at 1705 All edits/amendments must be made on the electronic document DICTATION DATE: 06/05/191704 HEALTH PLAN SPECIALIST: JOSE 06/05/191704 RPT#: [id number] DC DATE: STATUS: ADM IN [facility] [address] [place] [address] END OF REPORT
--- NOTE | 2019-06-05 19:59 | NUR ---
RECIEVED UP IN BED WITH EYES OPEN AND TV ON. FAMILY AT BEDSIDE. ALERT AND ORIENTED X4. UP AD WHIT. RIGHT ARM RESERVED D/T MASCETOMY. FENTYL PATCH TO LEFT SHOULDERT AND NICOTINE PATCH TO LEFT ARM. ICE CREAM AND ZACH CRACKERS GIVEN PER REQUEST. DENIES ANY OTHER NEEDS.
[2019-06-05 20:00] VITALS: BP 131/52
[2019-06-06] VITALS: BP 129/54
[2019-06-06 04:00] VITALS: BP 125/55
[2019-06-06 05:37] LABS: BASOPHILS 0.2 % (0-2); EOSINOPHILS 2.7 % (0-7); HEMATOCRIT 30.3 % (36.0-48.0); HEMOGLOBIN 9.6 g/dL (12-16); IMMATURE GRANULOCYTES 7.2 % (0-5); LYMPHOCYTES 23.2 % (15-50); MCH 28.7 pg (26.0-34.0); MCHC 31.7 g/dL (31.0-37.0); MCV 90.4 fL (80.0-100.0); MONOCYTES 10.1 % (2-11); NEUTROPHILS 56.6 % (40-80); RBC 3.35 10x6/uL (4.00-5.40); RDW 16.5 % (11.5-14.5); WBC 5.1 10x3/uL (4.8-10.8)
[2019-06-06 06:26] LABS: CALC OSMOLALITY 279 mosm/kg (275-300); CARBON DIOXIDE 24.7 mmol/L (21.0-32.0); CHLORIDE - SERUM 106 mmol/L (98-107); CREATININE - SERUM 0.6 mg/dL (0.6-1.3); GLUCOSE 86 mg/dL (74-106); MAGNESIUM - SERUM 1.9 mg/dL (1.8-2.4); PHOSPHOROUS 3.8 mg/dL (2.5-4.9); POTASSIUM - SERUM 3.7 mmol/L (3.5-5.1); SODIUM 142 mmol/L (136-145); eGFR NON AFRICAN AMERICAN > 90 mL/min (90-120)
[2019-06-06 06:30] LABS: UREA NITROGEN 7 mg/dL (7-18)
[2019-06-06 06:31] LABS: PLATELET COUNT 47 10x3/uL (130-400)
--- NOTE | 2019-06-06 07:30 | NUR ---
REPORT RECIEVED. WILL CONTINUE WITH POC. PT CURRENTLY LYING SEMI FOWLERS. CALL LIGHT W/I REACH. PT IS RESTING WITH EYES CLOSED AT THIS TIME. RR EVEN AND UNLABORED ON RA. NS INFUSING @100ML/HR VIA R.WRIST PIV. NO S/S OF DISTRESS NOTED. PT DENIES ANY NEEDS AT THIS TIME. WILL CTM.
[2019-06-06 08:00] VITALS: BP 128/69
--- NOTE | 2019-06-06 10:14 | NUR ---
RECEIVED VERBAL ORDERS PER THAT PT IS CLEAR FOR DISCHARGE. WILL NOTIFY PRIMARY.
[2019-06-06 12:00] VITALS: BP 125/56
--- NOTE | 2019-06-06 13:40 | NUR ---
I have reviewed this patient and I concur with the Shift Assessment completed by the Licensed Practical Nurse today this shift.
[2019-06-06] MEDS ORDERED: ZITHROMAX250 MG PO (15:52)
[2019-06-06] MEDS ORDERED: OMNICEF300 MG PO (15:53)
[2019-06-06 16:47] VITALS: BP 143/79
--- NOTE | 2019-06-06 17:16 | MORECARE ---
CASE MANAGEMENT DISCHARGE SUMMARY PATIENT: HUBERT GARCIA UNIT: [id number] ADM DATE: 06/04/19 AGE: 53 : 61 SEX: F ROOM/BED: D.0950 AUTHOR: RICHELLE,DOC PHYSICIAN: REFERRING PHYSICIAN: ELIZABETH RODRIGES MD DATE OF SERVICE: 06/06/19 Discharge Plan Patient Name: HUBERT GACRIA Facility: [facility]:[place] : 1965 Planned Disposition: Home Anticipated Discharge Date: 06/06/19 Discharge Date: Expected LOS: 2 Initial Reviewer: [email or web address] Initial Review Date: 06/04/2019 Generated: 06/06/19 6:16 pm DCP- Discharge Planning Updated by [email or web address]: Marco Brambila on 06/05/19 4:[address] Patient Name: HUBERT GARCIA Encounter No: [id number] : 1965 Primary Insurance: MEDICARE A & B Anticipated DC Date: 06-06-2019 Planned Disposition: Home DCP follow-up note: CM CALLED [facility], , PROVIDED INFORMATION TO DOMINGA OF PT'S HOME NOT HAVING ELECTRICITY AND THAT A 13 YEAR OLD MALE CHILD WAS LIVING IN THE HOME WITH COOL TEMPERATURES. REFERRAL TAKEN FOR [facility]ING. [facility] TO FOLLOW UP WITH FAMILY AT HOME. PT PLANS TO DISCHARGE HOME WITH FAMILY, SPOUSE TO TRANSPORT HOME. PT HAS NO ANTICIPATED DISCHARGE NEEDS AT THIS TIME. CM TO CONTINUE TO FOLLOW AND ASSIST NEEDED. NUVIA Worthy DCP- Discharge Planning Updated by [email or web address]: Claudia Alvarado on 06/04/19 12:[address] DC PLAN: Return home with and other's living in the home. ANTICIPATED DC NEEDS: No electricity in the home. CM met with patient to complete initial dc planning assessment. CM educated patient on the CM role and verbal consent given by patient to complete assessment. CM verified patient's address, phone number, and emergency contact phone numbers. Patient lives at home with her , 13 yo autistic son, and other adults living in a mobile home. She reports she is renting space in a double wide that the electricity has been turned off. She reports there are several different people living in the home and the machine lay out worker has not paid the electric bill and all other members living there are refusing to pay the back pay to get the electricity turned back on. She reports she has a 13 yo son living there who has autism and he attends [employer] and she is wanting to move but she cant find anywhere to go that she can afford. She reports when they have enough money they go to [employer] truck stop to take a shower. CM discussed that her 13 yo son needed to have electricity and that the living situation was not ideal for her son. She verbalized understanding and reports she and her are in the process of finding an affordable place to live. She stated she does not get food stamps as she has too much income to qualify. Cm reported this information to Patty COY. At discharge patient plans to return home. CM informed her that she needed to get in contact with [facility] housing and ask for assistance. She verbalized understanding and asked cm to not report her. She said is she loses her son she is going to "beat that bitches ass for not paying the electric bill". CM discussed availability of home health, rehab services, and medical equipment. Patient denied known discharge needs at this time. Patient reports her will transport her home at time of discharge. CM will continue to follow and will assist as needed with dc plans/needs. Claudia Alvarado RN, [facility] DCPIA - Discharge Planning Initial Assessment Updated by [id number]: Claudia Alvarado on 06/04/19 1:14 pm * Is the patient Alert and Oriented? Yes * How many steps to enter\\exit or inside your home? * PCP Dr. Contreras * Pharmacy [facility] on [address] * Preadmission Environment Home with Family * ADLs Independent * Equipment Rolling Walker * List name and contact numbers for known caregivers / representatives who currently or will assist patient after discharge: Iain Garcia - - [phone] * Verbal permission to speak to the caregivers and representatives has been obtained from the patient. Yes * Additional services required to return to the preadmission environment? No * Can the patient safely return to the preadmission environment? Yes * Has this patient been hospitalized within the prior 30 days at any hospital? No Coverage Notice Reviewer: [id number] - Kelsea Armstrong Notice Issued Date-Time: 06/06/2019 16:46 Notice Type: IM Discharge Notice Notice Delivered To: Patient Relationship to Patient: Dispensary Technician Name: Delivery Method: HAND - Hand Delivered Eduarda Days: Prior Verbal Notification: Recipient Understood Notice: Yes Recipient Signature: Yes Med Rec Note Co-signed by Attending: Coverage Notice Comment: IMM SERVED Last DP export: 06/05/19 4:05 Patient Name: HUBERT GARCIA Page [id number] at 1716 All edits/amendments must be made on the electronic document DICTATION DATE: 06/06/191714 CARD SETTER: JOSE 06/06/191714 RPT#: [id number] DC DATE: STATUS: ADM IN [facility] [address] [place] [address] END OF REPORT
--- NOTE | 2019-06-06 17:54 | NUR ---
PT DISCHARGED HOME VIA WHEELCHAIR WITH FAMILY. PIV REMOVED WITH CATHETER TIP FULLY INTACT. PT SIGNED PROPER DISCHARGE INSTRUCTIONS AND REMOVED ALL VALUABLES FROM THE ROOM.
== END 2019-06-06 17:55 | disposition home or self-care (01) | DRG 871 ==
LOC: D.ER 22:39 → D.M2 06-04 00:33
PROVIDERS: Family Medicine; ADMIT Family Medicine Adult Medicine; ATTEND Family Medicine Adult Medicine
DX: A41.9 Sepsis, unspecified organism (principal); J18.9 Pneumonia, unspecified organism; E43 Unspecified severe protein-calorie malnutrition; F17.213 Nicotine dependence, cigarettes, with withdrawal; B19.10 Unspecified viral hepatitis B without hepatic coma; C79.51 Secondary malignant neoplasm of bone; K59.03 Drug induced constipation; T40.2X5A Adverse effect of other opioids, initial encounter; K21.9 Gastro-esophageal reflux disease without esophagitis; M19.90 Unspecified osteoarthritis, unspecified site; C50.919 Malignant neoplasm of unspecified site of unspecified female breast; Z68.26 Body mass index [BMI] 26.0-26.9, adult

== ENCOUNTER 2019-07-07 08:15 | Day surgery (SDC) | payer MEDICARE ==
[~2019-07-07] VITALS: Ht 165.1 cm; Wt 73.9 kg
[~2019-07-07 08:15] MED LIST changes: +OMNICEF300 MG PO; +ZITHROMAX250 MG PO; +ZOFRAN4 MG PO
[2019-07-07 09:04] LABS: HEMATOCRIT 23.9 % (36.0-48.0); HEMOGLOBIN 7.4 g/dL (12-16); MCH 28.9 pg (26.0-34.0); MCV 93.4 fL (80.0-100.0); PLATELET COUNT 22 10x3/uL (130-400); RBC 2.56 10x6/uL (4.00-5.40); RDW 17.7 % (11.5-14.5); WBC 2.1 10x3/uL (4.8-10.8)
[2019-07-07 09:09] LABS: APTT 26.6 SECONDS (22.8-39.4); INR 1.15 (0.85-1.17); PROTIME 14.2 SECONDS (11.6-15.0)
[2019-07-07 09:45] VITALS: Ht 165.1 cm; Wt 73.9 kg
[2019-07-07 11:20] LABS: BASOPHILS 0.5 % (0-2); EOSINOPHILS 3.3 % (0-7); IMMATURE GRANULOCYTES 0.9 % (0-5); LYMPHOCYTES 57.5 % (15-50); MONOCYTES 5.6 % (2-11); NEUTROPHILS 32.2 % (40-80)
[2019-07-07] MEDS ORDERED: OXYCODONE HCL5 M1 PO (11:53)
--- NOTE | 2019-07-07 12:19 | NUR ---
1210 CHEST XRAY COMPLETED
--- NOTE | 2019-07-07 14:31 | NUR ---
DC INSTRUCTIONS GIVEN TO PT'S SPOUSE. STATES UNDERSTANDING. DC'D IV CATH FULLY INTACT.
--- NOTE | 2019-07-07 15:11 | NUR ---
PT LEFT UNIT VIA WC AT 1506
== END 2019-07-07 15:06 | disposition home or self-care (01) ==
LOC: D.OPS 08:15 → D.PAN 08:30 → D.OPS 10:15 → D.PAN 10:15 → D.OPS 15:06
PROVIDERS: Anesthesiology; ATTEND Surgery
DX: C50.919 Malignant neoplasm of unspecified site of unspecified female breast (principal); D64.9 Anemia, unspecified; D69.6 Thrombocytopenia, unspecified

== ENCOUNTER 2019-07-14 11:28 | Outpatient (CLI) | payer MEDICARE ==
[2019-07-07 09:45] VITALS: Ht 165.1 cm; Wt 68.0 kg
[~2019-07-14] VITALS: Ht 165.1 cm; Wt 68.0 kg
[~2019-07-14 11:28] MED LIST changes: +OXYCODONE HCL5 M1 PO
--- NOTE | 2019-07-14 13:30 | NUR ---
1315 REPORT FROM JANE PEREYRA RN. 1326 ROOM CHECK AND VITAL SIGNS. PT. DENIES PROBLEMS WITH TRANSFUSION. RATE INCREASED TO 175/CC/HR. PT. STATES IS PLANNING ON TAKING A NAP. CALL LIGHT AT BEDSIDE.
--- NOTE | 2019-07-14 14:00 | NUR ---
1400 ROOM CHECK DENIES PROBLEMS WITH TRANSFUSION.
--- NOTE | 2019-07-14 14:40 | NUR ---
1435 ROOM CHECK, BLOOD GOING WELL, RATE INCREASED TO 200/CC/HR.
--- NOTE | 2019-07-14 15:51 | NUR ---
1502 1ST UNIT BLOOD HAS COMPLETED LINE BEING FLUSHED WITH NS 1535 2ND UNIT BLOOD CHECKED AT BEDSIDE BY THIS NURSE AND ELIO AZEVEDO RN INITIATED AT 50/CC/HR 1550 DENIES PROBLEMS WITH TRANSFUSION, RATE INCREASED TO 200/CC/HR UP TO BR VOIDS LG AMT.
--- NOTE | 2019-07-14 19:31 | NUR ---
184 PLATLETS COMPLETED PORT FLUSHED WITH NS BY ELIO AZEVEDO RN AND ASHOK BASS DC'D WITH CATH INTACT NO BLEEDING NOTED BANDAID APPLIED. UP TO BR VOIDS 1900 PT. STATES READY FOR RELEASE. SPOUSE HERE RELEASED IN WC. 1914 DR. ATKINS NOTIFIED OF NO HEPARIN USED IN PORT, OK'D DUE TO TO LOW PLATLET COUNT.
== END 2019-07-14 19:00 | disposition home or self-care (01) ==
LOC: D.OPS 11:28
PROVIDERS: ATTEND Internal Medicine Hematology & Oncology
DX: C50.412 Malignant neoplasm of upper-outer quadrant of left female breast (principal); D64.9 Anemia, unspecified; D69.49 Other primary thrombocytopenia

== ENCOUNTER 2019-11-14 02:00 | Emergency (ER) | payer MEDICARE ==
[~2019-11-14] VITALS: Ht 165.1 cm; Wt 63.5 kg
[~2019-11-14 02:00] MED LIST changes: +Nicoderm [PBKC] TRANSDERM; +[UNRECOGNIZED DRUG - REMARK]
[2019-11-14 02:08] VITALS: Ht 165.1 cm; Wt 63.5 kg
[2019-11-14 02:39] LABS: BASOPHILS 0.2 % (0-2); EOSINOPHILS 2.4 % (0-7); HEMATOCRIT 28.1 % (36.0-48.0); HEMOGLOBIN 8.8 g/dL (12-16); IMMATURE GRANULOCYTES 0.2 % (0-5); LYMPHOCYTES 24.4 % (15-50); MCH 32.7 pg (26.0-34.0); MCHC 31.3 g/dL (31.0-37.0); MCV 104.5 fL (80.0-100.0); MEAN PLATELET VOLUME 10.5 fL (7.4-10.4); MONOCYTES 5.6 % (2-11); NEUTROPHILS 67.2 % (40-80); RBC 2.69 10x6/uL (4.00-5.40)
[2019-11-14 02:48] LABS: PLATELET COUNT 110 10x3/uL (130-400)
[2019-11-14 02:53] LABS: ALBUMIN 3.3 g/dL (3.4-5.0); BILIRUBIN - TOTAL 0.21 mg/dL (0.2-1.3); CALCIUM 8.3 mg/dL (8.5-10.1); PROTEIN - SERUM 6.2 g/dL (6.4-8.2)
[2019-11-14 03:10] LABS: ANION GAP 13.9 mmol/L (8-16); CARBON DIOXIDE 24.1 mmol/L (21.0-32.0)
[2019-11-14] MEDS ORDERED: MEDROL DOSE PACK4 MG PO (04:41)
[2019-11-14] MEDS ORDERED: KEFLEX500 MG PO (04:41)
[2019-11-14 04:57] VITALS: BP 101/62
== END 2019-11-14 04:57 | disposition home or self-care (01) ==
LOC: D.ER 02:00
PROVIDERS: Family Medicine
DX: L03.114 Cellulitis of left upper limb (principal); L25.9 Unspecified contact dermatitis, unspecified cause; I95.9 Hypotension, unspecified; K21.9 Gastro-esophageal reflux disease without esophagitis

== ENCOUNTER 2020-04-06 12:50 | Outpatient (CLI) | payer MEDICARE ==
[~2020-04-06] VITALS: Ht 165.1 cm; Wt 65.9 kg
[~2020-04-06 12:50] MED LIST changes: +KEFLEX500 MG PO; +MEDROL DOSE PACK4 MG PO
[2020-04-06] MEDS ORDERED: PROTONIX20 MG PO (13:41)
[2020-04-06 13:51] VITALS: BP 89/45; Ht 165.1 cm; Wt 65.9 kg
--- NOTE | 2020-04-06 13:55 | NUR ---
PT WILL TAKE HOME MED IF NEEDED FOR PAIN.
--- NOTE | 2020-04-06 15:15 | NUR ---
TYLENOL NOT GIVEN DUE TO PATIENT TAKING NORCO FROM HOME, HAS TAKEN MULTIPLE DOSES OF NORCO WITH TYLENOL AND PATIENT IS CONCERNED ABOUT GETTING TOO MUCH TYLENOL
--- NOTE | 2020-04-06 19:05 | NUR ---
PATIENT AWAITING SPOUSE TO ARRIVE TO PROVIDE TRANSPORTATION, PATIENT REQUESTS TO BE WHEELED TO ENTRANCE AND LEFT TO WAIT BUT PATIENT IS VERY DROWSY, FALLS ASLEEP VERY QUICKLY, THIS NURSE DOES NOT FEEL COMFORTABLE LEAVING PATIENT WITH NO IDEA WHEN SPOUSE WILL BE HERE. PATIENT STATES SHE THOUGHT SPOUSE WAS GOING TO BE HERE HOURS AGO, IS NOT SURE WHAT HAPPENED.
--- NOTE | 2020-04-06 19:50 | NUR ---
SPOUSE CALLS AND STATES HE WILL BE HERE IN 3 MINUTES, PATIENT WHEELED TO ER ENTRANCE VIA WHEELCHAIR, THIS NURSE WAITS 10 MINUTES WITH PATIENT AND SPOUSE ARRIVES, PATIENT GETS IN SPOUSE'S TRUCK
== END 2020-04-06 19:50 | disposition home or self-care (01) ==
LOC: D.OPS 12:50
PROVIDERS: ATTEND Internal Medicine Hematology & Oncology
DX: D64.9 Anemia, unspecified (principal)

== ENCOUNTER 2020-04-16 15:45 | Emergency (ER) | payer MEDICARE, MEDICAID ==
[~2020-04-16] VITALS: Ht 162.6 cm; Wt 63.6 kg
[~2020-04-16 15:45] MED LIST changes: +PROTONIX20 MG PO
[2020-04-16 16:03] VITALS: Ht 162.6 cm; Wt 63.6 kg
[2020-04-16 17:47] LABS: ANION GAP 12.3 mmol/L (8-16); CALCIUM 8.7 mg/dL (8.5-10.1); CARBON DIOXIDE 29.3 mmol/L (21.0-32.0); INR 1.09 (0.85-1.17); POTASSIUM - SERUM 4.6 mmol/L (3.5-5.1); PROTIME 14.1 SECONDS (11.6-15.0)
[2020-04-16 17:48] LABS: APTT 30.7 SECONDS (22.8-39.4)
[2020-04-16 17:50] LABS: BASOPHILS 0.3 % (0-2); EOSINOPHILS 1.3 % (0-7); HEMATOCRIT 33.9 % (36.0-48.0); HEMOGLOBIN 10.9 g/dL (12-16); IMMATURE GRANULOCYTES 1.9 % (0-5); LYMPHOCYTES 34.5 % (15-50); MCH 29.5 pg (26.0-34.0); MCHC 32.2 g/dL (31.0-37.0); MCV 91.9 fL (80.0-100.0); MONOCYTES 10.2 % (2-11); NEUTROPHILS 51.8 % (40-80); RBC 3.69 10x6/uL (4.00-5.40); RDW 16.9 % (11.5-14.5); WBC 3.7 10x3/uL (4.8-10.8)
[2020-04-16 17:53] LABS: ALBUMIN 3.3 g/dL (3.4-5.0); BILIRUBIN - TOTAL 0.3 mg/dL (0.2-1.3); PROTEIN - SERUM 7.2 g/dL (6.4-8.2)
[2020-04-16 18:14] LABS: PLATELET COUNT 41 10x3/uL (130-400)
[2020-04-16 18:18] LABS: BILIRUBIN NEGATIVE (NEGATIVE); KETONE NEGATIVE (NEGATIVE); NITRITE NEGATIVE (NEGATIVE); UROBILINOGEN NORMAL mg/dL (< 2)
[2020-04-16 18:39] LABS: PLATELET ESTIMATE DECREASED
[2020-04-16] MEDS ORDERED: CARAFATE1 G PO (19:06)
[2020-04-16 19:58] VITALS: BP 101/57
== END 2020-04-16 20:00 | disposition home or self-care (01) ==
LOC: D.ER 15:45
PROVIDERS: Family Medicine
DX: K21.9 Gastro-esophageal reflux disease without esophagitis (principal); D64.9 Anemia, unspecified; R94.4 Abnormal results of kidney function studies; D69.6 Thrombocytopenia, unspecified; C79.81 Secondary malignant neoplasm of breast; R10.9 Unspecified abdominal pain

== ENCOUNTER 2020-09-08 11:07 | Emergency (ER) | payer MEDICARE, MEDICAID ==
[~2020-09-08] VITALS: Ht 165.1 cm; Wt 47.7 kg
[~2020-09-08 11:07] MED LIST changes: +CARAFATE1 G PO; +LEVOFLOXACIN500 MG PO; +MIRALAX17 GM PO; +MORPHINE IMMEDI15 MG PO; +ZOFRAN ODT4 MG/UDTAB PO
[2020-09-08 11:14] VITALS: Ht 165.1 cm; Wt 47.7 kg
[2020-09-08 12:27] LABS: BASOPHILS 1.8 % (0-2); EOSINOPHILS 2.4 % (0-7); HEMATOCRIT 23.4 % (36.0-48.0); IMMATURE GRANULOCYTES 8.3 % (0-5); LYMPHOCYTE ABS# 1.13 10x3/uL (1.18-3.74); LYMPHOCYTES 16.7 % (15-50); MCH 28.3 pg (26.0-34.0); MCHC 30.8 g/dL (31.0-37.0); MCV 92.1 fL (80.0-100.0); MONOCYTES 17.5 % (2-11); NEUTROPHIL ABS# 3.61 10x3/uL (1.56-6.13); NEUTROPHILS 53.3 % (40-80); RBC 2.54 10x6/uL (4.00-5.40); RDW 16.6 % (11.5-14.5); WBC 6.8 10x3/uL (4.8-10.8)
[2020-09-08 12:32] LABS: INR 1.28 (0.85-1.17); PROTIME 14.8 SECONDS (11.6-15.0)
[2020-09-08 12:34] LABS: CALC OSMOLALITY 277 mosm/kg (275-300); CALCIUM 8.8 mg/dL (8.5-10.1); CARBON DIOXIDE 24.1 mmol/L (21.0-32.0); CHLORIDE - SERUM 98 mmol/L (98-107); CREATININE - SERUM 0.8 mg/dL (0.6-1.3); GLUCOSE 81 mg/dL (74-106); POTASSIUM - SERUM 3.9 mmol/L (3.5-5.1); SODIUM 136 mmol/L (136-145); UREA NITROGEN 31 mg/dL (7-18); eGFR NON AFRICAN AMERICAN 78 mL/min (90-120)
[2020-09-08 12:39] LABS: HEMOGLOBIN 7.2 g/dL (12-16)
[2020-09-08 12:40] LABS: PLATELET COUNT 2 10x3/uL (130-400)
[2020-09-08 12:41] LABS: ALBUMIN 2.1 g/dL (3.4-5.0); ALKALINE PHOSPHATASE 227 U/L (30-120); ALT (SGPT) 20 U/L (10-68); BILIRUBIN - TOTAL 0.95 mg/dL (0.2-1.3); PROTEIN - SERUM 5.2 g/dL (6.4-8.2)
[2020-09-08 17:45] VITALS: BP 102/59
== END 2020-09-08 17:46 | disposition other institution (70) ==
LOC: D.ER 11:07
PROVIDERS: Family Medicine
DX: H70.003 Acute mastoiditis without complications, bilateral (principal); J01.40 Acute pansinusitis, unspecified; H66.93 Otitis media, unspecified, bilateral; S12.9XXA Fracture of neck, unspecified, initial encounter; X58.XXXA Exposure to other specified factors, initial encounter; S22.079A Unspecified fracture of T9-T10 vertebra, initial encounter for closed fracture; S00.83XA Contusion of other part of head, initial encounter; S09.93XA Unspecified injury of face, initial encounter; D69.6 Thrombocytopenia, unspecified; C78.7 Secondary malignant neoplasm of liver and intrahepatic bile duct; C79.51 Secondary malignant neoplasm of bone; M79.622 Pain in left upper arm; H11.32 Conjunctival hemorrhage, left eye; M54.9 Dorsalgia, unspecified